=== PATIENT | female | born 1955 | race Caucasian/White ===

== ENCOUNTER 2016-09-16 05:08 | Emergency (ER) | payer BC ==
[2016-09-16 05:27] VITALS: RESP 18
[2016-09-16 05:55] LABS: Appearance,Urine Turbid (Clear); Bilirubin,Urine Negative (Negative); Glucose,Urine (UA) Negative (Negative); Ketones,Urine Negative (Negative); Leukocyte Esterase,Urine Large (Negative); Nitrite,Urine Negative (Negative); Particle Count 2686; Protein,Urine 1+ (Negative); RBC,Urine >182 /hpf (0-5); Specific Gravity,Urine 1.016 (1.001-1.035); UA Billing (MACRO vs. MICRO) MICRO; Urobilinogen,Urine <2.0 mg/dL (<2.0); WBC,Urine >182 /hpf (0-5)
[2016-09-16] MEDS ORDERED: cefTRIAXone 1,000 MG VIAL IM STA (07:24)
--- NOTE | 2016-09-16 07:31 | ED ---
General Adult HPI - General Chief complaint: Urogenital Stated complaint: Bladder infection Time Seen by Provider: 09/16/16 07:00 Source: patient, RN notes reviewed Mode of arrival: ambulatory Limitations: no limitations - History of Present Illness Initial comments: This is a 61-year-old female comes in complaining of urinary urgency and some suprapubic discomfort. Patient states started about 2 days ago. Patient states there is some dysuria as well. Patient denies any fever or chills. Patient denies any back pain. Patient denies any upper abdominal pain. Patient denies any nausea vomiting or diarrhea. - Related Data Home Medications Medication Instructions Recorded Confirmed ALPRAZolam [Xanax] 0.25 mg PO HS 11/22/13 09/16/16 Amitriptyline HCl [Elavil] 3 tab PO HS 11/22/13 09/16/16 Gabapentin [Neurontin] 100 mg PO TID 11/22/13 09/16/16 Levothyroxine Sodium [Synthroid] 1 tab PO DAILY 11/22/13 09/16/16 Calcium Carbonate/Vitamin D3 1 each PO 09/16/16 [Calcium 600-Vit D3 200 Tablet] Sennosides [Senna] 8.6 mg PO 09/16/16 Zolpidem [Ambien] 5 mg PO HS PRN 09/16/16 09/16/16 Previous Rx's Medication Instructions Recorded Levofloxacin [Levaquin] 750 mg PO DAILY #7 tab 09/16/16 Phenazopyridine [Pyridium] 200 mg PO TID #9 tablet 09/16/16 Allergies Allergy/AdvReac Type Severity Reaction Status Date / Time No Known Allergies Allergy Verified 02/06/16 12:21 Review of Systems ROS Statement: Those systems with pertinent positive or pertinent negative responses have been documented in the HPI. ROS Other: All systems not noted in ROS Statement are negative. Past Medical History Past Medical History: Fibromyalgia, Thyroid Disorder Additional Past Medical History / Comment(s): vertigo History of Any Multi-Drug Resistant Organisms: None Reported Past Surgical History: Appendectomy, Hysterectomy, Tubal Ligation Past Psychological History: No Psychological Hx Reported Smoking Status: Former smoker Past Alcohol Use History: Occasional Past Drug Use History: None Reported General Exam - General Exam Comments Initial Comments: GENERAL: Patient is well-developed and well-nourished. Patient is nontoxic and well- hydrated and is in mild distress. ENT: Neck is soft and supple. No significant lymphadenopathy is noted. Oropharynx is clear. Moist mucous membranes. Neck has full range of motion without eliciting any pain. EYES: The sclera were anicteric and conjunctiva were pink and moist. Extraocular movements were intact and pupils were equal round and reactive to light. Eyelids were unremarkable. PULMONARY: Unlabored respirations. Good breath sounds bilaterally. No audible rales rhonchi or wheezing was noted. CARDIOVASCULAR: There is a regular rate and rhythm without any murmurs gallops or rubs. ABDOMEN: Mild suprapubic tenderness patient has no CVA tenderness SKIN: Skin is clear with no lesions or rashes and otherwise unremarkable. NEUROLOGIC: Patient is alert and oriented x3. Cranial nerves II through XII are grossly intact. Motor and sensory are also intact. Normal speech, volume and content. Symmetrical smile. MUSCULOSKELETAL: Normal extremities with adequate strength and full range of motion. No lower extremity swelling or edema. No calf tenderness. LYMPHATICS: No significant lymphadenopathy is noted PSYCHIATRIC: Normal psychiatric evaluation. Limitations: no limitations Course Vital Signs 09/16/16 05:23 Temperature 97.5 F L Pulse Rate 70 Respiratory 18 Rate Blood Pressure 139/65 O2 Sat by Pulse 99 Oximetry Medical Decision Making - Medical Decision Making patient received a shot of Rocephin in the emergency department. - Lab Data Lab Results 09/16/16 Range/Units 05:27 Urine Color Yellow Urine Appearance Turbid H (Clear) Urine pH 6.0 (5.0-8.0) Ur Specific [place] 1.016 (1.001-1.035) Urine Protein 1+ H (Negative) Urine Glucose (UA) Negative (Negative) Urine Ketones Negative (Negative) Urine Blood Large H (Negative) Urine Nitrite Negative (Negative) Urine Bilirubin Negative (Negative) Urine Urobilinogen <2.0 (<2.0) mg/dL Ur Leukocyte Esterase Large H (Negative) Urine RBC >182 H (0-5) /hpf Urine WBC >182 H (0-5) /hpf Urine WBC Clumps Many H (None) /hpf Disposition Clinical Impression: Urinary tract infection Disposition: HOME SELF-CARE Condition: Good Instructions: Urinary Tract Infection in Women (ED) Prescriptions: Levofloxacin [Levaquin] 750 mg PO DAILY #7 tab Phenazopyridine [Pyridium] 200 mg PO TID #9 tablet Referrals: None,Stated [Primary Care Provider] - 1-2 days Time of Disposition: 07:30
[2016-09-16 07:50] VITALS: BP 128/70; PULSE 67; TEMP 97.8
== END 2016-09-16 07:50 | disposition home or self-care (01) ==
LOC: EC 05:08
DX: N39.0 Urinary tract infection, site not specified (principal); R10.9 Unspecified abdominal pain; M79.7 Fibromyalgia; E07.9 Disorder of thyroid, unspecified; Z87.891 Personal history of nicotine dependence; Z79.899 Other long term (current) drug therapy; Z90.710 Acquired absence of both cervix and uterus
CPT/HCPCS: 81001; 99283; 96372; J0696

== ENCOUNTER → 2016-10-23 | Outpatient (CLI) | payer BC ==
[2016-10-23 13:05] LABS: ALT 36 U/L (9-52); AST 26 U/L (14-36); Alkaline Phosphatase 101 U/L (38-126); Anion Gap 10 mmol/L; Blood Urea Nitrogen 16 mg/dL (7-17); Calcium 9.8 mg/dL (8.4-10.2); Carbon Dioxide 30 mmol/L (22-30); Chloride 104 mmol/L (98-107); Glucose 60 mg/dL (74-99); Non-African American GFR(MDRD) >60 (>60 ml/min/1.73 sqM); Sodium 144 mmol/L (137-145); Total Bilirubin 0.5 mg/dL (0.2-1.3)
[2016-10-23 13:07] LABS: CH 31.2; CHCM 34.1; HCT 38.4 % (34.0-46.0); HDW 2.68; HGB 13.7 gm/dL (11.4-16.0); MCH 32.8 pg (25.0-35.0); MCHC 35.7 g/dL (31.0-37.0); MCV 91.8 fL (80.0-100.0); Mean Platelet Volume 6.8; RBC 4.19 m/uL (3.80-5.40); RDW 13.1 % (11.5-15.5); WBC 5.3 k/uL (3.8-10.6)
[2016-10-23 13:09] LABS: Partial Thromboplastin Time 22.1 sec (22.0-30.0); Prothrombin Time 10.3 sec (9.0-12.0)
[2016-10-23 13:15] LABS: Appearance,Urine Clear (Clear); Bilirubin,Urine Negative (Negative); Glucose,Urine (UA) Negative (Negative); Ketones,Urine Negative (Negative); Leukocyte Esterase,Urine Negative (Negative); Nitrite,Urine Negative (Negative); PH, Urine 5.5 (5.0-8.0); Protein,Urine Negative (Negative); Specific Gravity,Urine 1.008 (1.001-1.035); UA Billing (MACRO vs. MICRO) CHEM; Urobilinogen,Urine <2.0 mg/dL (<2.0)
== END | disposition home or self-care (01) ==
LOC: LABWHC1 12:14
PROVIDERS: ATTEND Orthopaedic Surgery Sports Medicine
DX: Z01.810 Encounter for preprocedural cardiovascular examination (principal); Z01.812 Encounter for preprocedural laboratory examination; Z01.818 Encounter for other preprocedural examination
CPT/HCPCS: 80053; 81003; 85027; 85610; 85730; 87070

== ENCOUNTER 2016-11-02 07:17 | Inpatient (IN) | payer BC ==
[2016-10-25 11:06] VITALS: BMI 23.5
[~2016-11-02 07:17] MED LIST: ACETAMINOPHEN TAB 500 MG TAB PO ONE; DEXAMETHASONE SOD PHOSPHATE 10 MG/ML 1 ML VIAL IV ONE; HYDROmorphone 1 MG/ML 1 ML SYRINGE IVP PRN; MELOXICAM 7.5 MG TAB PO ONE; ONDANSETRON 4 MG/2 ML VIAL IVP ONE; TRANEXAMIC ACID 1,000 MG in SODIUM CHLORIDE 0.9% 100 ML IVPB ONE; ceFAZolin 2 GM in SODIUM CHLORIDE 0.9% 100 ML IVPB ONE
[2016-11-02] MEDS ORDERED: ROPIVACAINE 246.25 MG, EPINEPHrine 0.5 MG, KETOROLAC 30 MG, cloNIDine HCL/PF 80 MCG, WA... MISCELLANE ONE ×5 (10:05)
[2016-11-02 10:48] LABS: Glucose,Whole Blood 74 mg/dL (75-99)
[2016-11-02] MEDS: LACTATED RINGERS 1,000 ML IV SCH ×3 (10:54→20:04)
[2016-11-02] MEDS ORDERED: LIDOCAINE 1% 20 ML VIAL (10MG/ML) FOR IV START INTRADERMA ONE (10:54)
[2016-11-02] MEDS ORDERED: SCOPOLAMINE 1.5MG/72HR PATCH TRANSDERM ONE (11:07)
[2016-11-02] MEDS: MIDAZOLAM 2 MG/2 ML VIAL IV ONE ×2 (11:22→11:27)
[2016-11-02] MEDS ORDERED: diphenhydrAMINE 50 MG/ML 1 ML VIAL ONE (13:04)
[2016-11-02] MEDS ORDERED: MORPHINE SULFATE (PF) 0.3 MG/0.3 ML SYR ONE (13:04)
[2016-11-02] MEDS ORDERED: LIDOCAINE 1% INJ 10MG/ML (20 ML MDV) ONE (13:04)
[2016-11-02] MEDS ORDERED: SODIUM CHLORIDE 0.9% 100 ML BAG ONE (13:04)
[2016-11-02] MEDS ORDERED: MIDAZOLAM 2 MG/2 ML VIAL ONE (13:04)
[2016-11-02] MEDS ORDERED: PROPOFOL 10 MG/ML 20 ML VIAL IV ONE (13:04)
[2016-11-02] MEDS ORDERED: TRANEXAMIC ACID 1,000 MG/10 ML VIAL ONE (13:04)
[2016-11-02] MEDS ORDERED: ceFAZolin 3,000 MG in SODIUM CHLORIDE 0.9% IRRIGATIO 3,000 ML IRRIGATION ONE (13:37)
[2016-11-02] MEDS ORDERED: LACTATED RINGERS 1,000 ML IV ONE (13:43)
[2016-11-02] MEDS ORDERED: ROPIVACAINE 5 MG/ML 30 ML VIAL MISCELLANE ONE (13:46)
[2016-11-02] MEDS ORDERED: ACETAMINOPHEN TAB 325 MG TAB PO PRN (15:09)
[2016-11-02] MEDS ORDERED: HYDROcodone/APAP 7.5-325MG 1 EACH TAB PO PRN (15:09)
[2016-11-02] MEDS ORDERED: DIAZEPAM 5 MG TAB PO PRN (15:09)
[2016-11-02] MEDS ORDERED: MAGNESIUM HYDROXIDE 2,400 MG/10 ML CUP PO PRN (15:09)
[2016-11-02] MEDS ORDERED: BISACODYL 10 MG SUPP RECTAL PRN (15:09)
[2016-11-02] MEDS ORDERED: hydrOXYzine PAMOATE 25 MG CAP PO PRN (15:09)
[2016-11-02] MEDS ORDERED: NALOXONE 0.4 MG/ML 1 ML VIAL IV PRN (15:09)
[2016-11-02] MEDS ORDERED: traMADol 50 MG TAB PO PRN (15:09)
[2016-11-02] MEDS ORDERED: HYDROmorphone 1 MG/ML 1 ML SYRINGE IVP PRN (15:09)
[2016-11-02] MEDS ORDERED: NA PHOS,M-B/NA PHOS,DI-BA 133 ML ENEMA RECTAL PRN (15:09)
[2016-11-02] MEDS ORDERED: TEMAZEPAM 15 MG CAP PO PRN (15:09)
[2016-11-02] MEDS ORDERED: ONDANSETRON 4 MG/2 ML VIAL IVP PRN (15:09)
--- NOTE | 2016-11-02 15:30 | XR ---
EXAMINATION TYPE: XR knee limited RT DATE OF EXAM: 11/02/2016 CLINICAL HISTORY: Postoperative evaluation Two views of the right knee are submitted. Identified are changes of total knee arthroplasty with femoral and tibial components appearing well seated. Postsurgical soft tissue changes are noted. Alignment is anatomic.
[2016-11-02] MEDS ORDERED: diphenhydrAMINE 50 MG/ML 1 ML VIAL IVP PRN (17:53)
[2016-11-02] MEDS ORDERED: NALBUPHINE 10 MG/ML AMPUL IV PRN (17:54)
[2016-11-02] MEDS: AMITRIPTYLINE HCL 50 MG TAB PO SCH (21:35)
[2016-11-02] MEDS: SENNOSIDES-DOCUSATE SODIUM 1 EACH TAB PO SCH (21:35)
[2016-11-02] MEDS: GABAPENTIN 300 MG CAP PO SCH (21:36)
[2016-11-02] MEDS: ceFAZolin 2 GM in SODIUM CHLORIDE 0.9% 100 ML IVPB SCH (21:36)
[2016-11-02] MEDS: ASPIRIN 325 MG TAB PO SCH (21:36)
[2016-11-02] MEDS: cycloSPORINE 0.05% OPHTH 0.4 ML DROPERETTE BOTH EYES SCH (21:36)
[2016-11-02] MEDS: ALPRAZolam 0.25 MG TAB PO SCH (22:14)
[2016-11-02] MEDS: HYDROmorphone 1 MG/ML 1 ML SYRINGE IVP PRN (22:44)
[2016-11-03] MEDS: HYDROmorphone 1 MG/ML 1 ML SYRINGE IVP PRN ×4 (04:41→19:45)
[2016-11-03] MEDS: ceFAZolin 2 GM in SODIUM CHLORIDE 0.9% 100 ML IVPB SCH (04:42)
[2016-11-03] MEDS: LEVOTHYROXINE 100 MCG TAB PO SCH (05:43)
[2016-11-03] MEDS: LACTATED RINGERS 1,000 ML IV SCH ×2 (05:51→11:19)
[2016-11-03 06:05] LABS: Appearance,Urine Clear (Clear); Bacteria,Urine Rare /hpf; Bilirubin,Urine Negative (Negative); Glucose,Urine (UA) Negative (Negative); Ketones,Urine Negative (Negative); Leukocyte Esterase,Urine Large (Negative); Mucus,Urine Rare /hpf; Nitrite,Urine Negative (Negative); Particle Count 1595; Protein,Urine Negative (Negative); RBC,Urine 3 /hpf (0-5); Specific Gravity,Urine 1.013 (1.001-1.035); Squamous Epithelial Cell,Urine <1 /hpf (0-4); UA Billing (MACRO vs. MICRO) MICRO; Urobilinogen,Urine <2.0 mg/dL (<2.0); WBC,Urine 14 /hpf (0-5)
[2016-11-03 07:42] VITALS: RESP 16
[2016-11-03 07:55] LABS: Basophils % (A) 0 %; Eosinophils % (A) 0 %; HCT 35.9 % (34.0-46.0); HDW 2.77; HGB 12.9 gm/dL (11.4-16.0); Luc # (Auto) 0.14; Luc % (Auto) 1; Lymphocytes # (A) 1.3 k/uL (1.0-4.8); Lymphocytes % (A) 13 %; MCH 31.9 pg (25.0-35.0); MCHC 35.9 g/dL (31.0-37.0); MCV 88.7 fL (80.0-100.0); Mean Platelet Volume 7.1; Monocytes # (A) 0.6 k/uL (0-1.0); Monocytes % (A) 6 %; Neutrophils % (A) 80 %; RBC 4.05 m/uL (3.80-5.40); RDW 12.8 % (11.5-15.5); WBC (Perox) 9.78
[2016-11-03] MEDS: CALCIUM CARB-VIT D 500MG-200UN 1 EACH TAB PO SCH (08:38)
[2016-11-03] MEDS: ALPRAZolam 0.25 MG TAB PO SCH ×2 (08:38→21:02)
[2016-11-03] MEDS: NITROFURANTOIN MACROCRYSTAL 50 MG CAP PO SCH (08:39)
[2016-11-03] MEDS: SENNOSIDES 8.6 MG TAB PO SCH (08:40)
[2016-11-03] MEDS: OXYBUTYNIN XL 5 MG TAB.ER.24 PO SCH (08:40)
[2016-11-03] MEDS: GABAPENTIN 300 MG CAP PO SCH ×2 (08:41→21:03)
[2016-11-03] MEDS: ASPIRIN 325 MG TAB PO SCH ×2 (08:41→21:02)
--- NOTE | 2016-11-03 09:11 | P.PN ---
Progress Note - Text 0735 Anesthesia POD 1. Patient is status post right TKR under spinal anesthesia with intra-thecal preservative free morphine the 100 g. Moderate pruritus treated to good effect with Benadryl and Nubain 2.5 mg, good post-op analgesia requiring infrequent supplementation with Dilaudid 0.25 mg IV, and [ no headache or other complication].
[2016-11-03] MEDS: cycloSPORINE 0.05% OPHTH 0.4 ML DROPERETTE BOTH EYES SCH ×2 (09:40→21:03)
[2016-11-03] MEDS: HYDROcodone/APAP 7.5-325MG 1 EACH TAB PO PRN ×3 (11:21→23:12)
[2016-11-03] MEDS: MULTIVITAMINS, THERA 1 EACH TAB PO SCH ×2 (11:21→11:27)
--- NOTE | 2016-11-03 11:32 | P.PN ---
Subjective Principal diagnosis: Status post Right total knee arthroplasty Patient is postop day #1 from right total knee arthroplasty performed by Dr. Grey. She's doing well today. Her pain is mostly controlled. She has pain at surgical site as expected. She has no new complaints. She denies numbness, tingling or calf pain. Review of systems is negative for fever, chills, chest pain, shortness breath or other. Objective - Vital Signs Vital signs: Vital Signs Temp 98.4 F 11/03/16 07:00 Pulse 72 11/03/16 07:00 Resp 16 11/03/16 07:00 BP 163/70 11/03/16 07:00 Pulse Ox 99 11/03/16 07:00 Intake & Output 11/02/16 11/03/16 11/03/16 18:59 06:59 18:59 Intake Total 1821 1200 Output Total 500 1200 1025 Balance 1321 0 -1025 Weight 68.039 kg Intake: IV 1821 1200 Lactated Ringers 1,000 ml 1200 @ 100 mls/hr IV .Q10H POLO Rx#:[id number] Output: Urine 400 1200 1025 Uretheral (Gonzales) 1200 725 Estimated Blood Loss 100 Other: Voiding Method Indwelling Catheter Indwelling Catheter Indwelling Catheter # Voids 1 - Exam Inspection of the right lower extremity reveals a benign surgical wound. There is no active bleeding, drainage or dehiscence. Calf is soft and nontender. Neurovascular status intact with motor and sensation throughout the right lower extremity. 2+ dorsalis pedis pulse and less than 2 second cap refill is present. - Constitutional General appearance: Present: no acute distress - Psychiatric Psychiatric: Present: A&O x's 3, appropriate affect, intact judgment & insight - Labs CBC & Chem 7: 11/03/16 07:31 Labs: Abnormal Lab Results - Last 24 Hours (Table) 11/03/16 11/03/16 Range/Units 05:50 07:31 Neutrophils # 8.0 H (1.3-7.7) k/uL Ur Leukocyte Esterase Large H (Negative) Urine WBC 14 H (0-5) /hpf Urine Bacteria Rare H (None) /hpf Urine Mucus Rare H (None) /hpf Assessment and Plan (1) S/P total knee arthroplasty Narrative/Plan: She will continue with routine postop orthopedic protocol including pain management, wound care, physical therapy, DVT prophylaxis and postop medical management. Expect that she will discharge to home in the next 1-2 days. Status: Acute Time with Patient: Less than 30
--- NOTE | 2016-11-03 16:19 | CONS ---
DATE OF SERVICE: 11/02/2016 REASON FOR CONSULTATION: Advice regarding hypothyroidism and other medical issues, requested by Dr. Grey. HISTORY OF PRESENT ILLNESS: This 61-year-old woman with a past medical history of fibromyalgia, history of hypothyroidism, history of appendectomy, being followed by a primary physician in [place], Dr. Gema Rueda, underwent right total knee arthroplasty. There is no history of any fever, rigor chills. No history of headache, loss of consciousness, seizures. PAST MEDICAL HISTORY: 1. History of DJD. 2. History of fibromyalgia. 3. Hypothyroidism. Medications prior to admission include: 1. Restasis. 2. Ambien. 3. Detrol LA 4 mg daily. 4. Senna. 5. Nitrofurantoin 50 mg p.o. daily. 6. Synthroid 100 mcg daily. 7. [place]. 8. Neurontin 300 mg daily. 9. Elavil 50 mg. 10. Xanax 0.25 mg. ALLERGIES: NONE. FAMILY HISTORY: History of DVT in the family. SOCIAL HISTORY: Previous history of smoking. No history of alcohol intake. REVIEW OF SYSTEMS: ENT: No diminished hearing. No diminished vision. CARDIOVASCULAR SYSTEM: No angina. RESPIRATORY SYSTEM: As mentioned earlier. GI: As mentioned earlier. : No dysuria, retention. NERVOUS SYSTEM: No numbness, weakness. ALLERGY/IMMUNOLOGY: No asthma, hayfever. MUSCULOSKELETAL: As mentioned earlier. HEMATOLOGY/ONCOLOGY: No history of anemia. ENDOCRINE: Hypothyroidism. CONSTITUTIONAL: As mentioned earlier. DERMATOLOGIC: Negative. RHEUMATOLOGIC: Negative. PSYCHIATRY: As mentioned earlier. PHYSICAL EXAMINATION: Patient is alert and oriented x3. Pulse is 68, blood pressure 101/58, respirations 18, temperature 97.9, pulse ox 97% on room air. HEENT: Conjunctivae normal. NECK: No jugular venous congestion. CARDIAC: S1, S2 muffled. RESPIRATORY: Breath sounds diminished at the bases. No rhonchi. No crackles. ABDOMEN: Soft. Non-tender. No mass palpable. LEGS: Status post right knee arthroplasty. NERVOUS SYSTEM: Higher functions as mentioned earlier. Moves all 4 limbs. No focal motor or sensory deficit. LYMPHATICS: No lymph node palpable in neck, axillae or groin. SKIN: No ulcer, rash or bleeding. LABS: Accu-Chek 74. Previous labs are noted. ASSESSMENT: 1. Status post right total knee arthroplasty. 2. Hypothyroidism. 3. History of fibromyalgia. 4. History of hypoglycemia. 5. History of cholecystectomy. 6. History of anxiety not otherwise specified. 7. FULL CODE. RECOMMENDATIONS AND DISCUSSION: In this 61-year-old woman who presented with multiple complex medical issues, we will monitor the patient closely, continue the current medications, continue symptomatic treatment. I recommend resuming the home medications, DVT prophylaxis, incentive spirometry. Will follow the patient closely with you. I also recommend a UA with micro to rule out the possibility of UTI. Thank you, Dr. Grey, for letting me participate in the care of this patient. JUAN
[2016-11-03] MEDS: AMITRIPTYLINE HCL 50 MG TAB PO SCH (21:02)
[2016-11-03] MEDS: SENNOSIDES-DOCUSATE SODIUM 1 EACH TAB PO SCH (21:04)
[2016-11-04] MEDS: HYDROmorphone 1 MG/ML 1 ML SYRINGE IVP PRN (04:24)
[2016-11-04] MEDS: LACTATED RINGERS 1,000 ML IV SCH ×4 (06:52→11:36)
[2016-11-04] MEDS: GABAPENTIN 300 MG CAP PO SCH ×2 (07:50→20:22)
[2016-11-04] MEDS: LEVOTHYROXINE 100 MCG TAB PO SCH (07:50)
[2016-11-04] MEDS: cycloSPORINE 0.05% OPHTH 0.4 ML DROPERETTE BOTH EYES SCH ×2 (07:50→20:22)
[2016-11-04] MEDS: ASPIRIN 325 MG TAB PO SCH ×2 (07:50→20:22)
[2016-11-04] MEDS: NITROFURANTOIN MACROCRYSTAL 50 MG CAP PO SCH (07:51)
[2016-11-04] MEDS: OXYBUTYNIN XL 5 MG TAB.ER.24 PO SCH (07:51)
[2016-11-04] MEDS: SENNOSIDES 8.6 MG TAB PO SCH (07:51)
[2016-11-04] MEDS: CALCIUM CARB-VIT D 500MG-200UN 1 EACH TAB PO SCH (07:51)
--- NOTE | 2016-11-04 07:52 | P.DS ---
Providers Date of admission: 11/02/16 10:09 Expected date of discharge: 11/04/16 Attending physician: Jacobo Grey Consults: 11/02/16 15:16 Consult Physician Routine Consulting Provider: Vilma Escalera Consult Reason/Comments: post op medical management Do you want consulting provider notified?: Yes Primary care physician: Physician Nonstaff - Discharge Diagnosis(es) (1) S/P total knee arthroplasty Patient was admitted to the OR on 11/02/2016 to undergo right total knee arthroplasty per Dr. Grey. She had failed conservative measures as an outpatient and desired proceed with elective surgery after given informed consent. She underwent the above procedure which she tolerated well without complication. Her postoperative hospital course has remained without complication. On day of discharge she is afebrile, vital signs stable, labs within acceptable ranges, wound is benign, neurovascular status intact, abdomen soft nontender, nontender, denying new complaints, tolerating by mouth meds and diet, passing flatus, voiding without difficulty and desires discharge. Review of systems is negative for fever, chills, chest pain, shortness breath, nausea, vomiting, dizziness, headaches, slurred speech, numbness, tingling, calf pain, abdominal pain or other. Current Visit: Yes Status: Acute Priority: Medium Procedures: Right total knee arthroplasty Patient Condition at Discharge: Good Plan - Discharge Summary New Discharge Prescriptions: New Aspirin 325 mg PO BID #60 tab Docusate [Colace] 100 mg PO BID #60 capsule HYDROcodone/APAP 10-325MG [[place] 10-325] 2 tab PO Q6H PRN #90 tab PRN Reason: Pain No Action ALPRAZolam [Xanax] 0.25 mg PO BID Sennosides [Senna] 8.6 mg PO DAILY Calcium Carbonate/Vitamin D3 [Calcium 600-Vit D3 200 Tablet] 1 tab PO DAILY Amitriptyline HCl [Elavil] 50 mg PO HS Gabapentin [Neurontin] 300 mg PO BID Levothyroxine Sodium [Synthroid] 100 mcg PO DAILY Zolpidem [Ambien] 10 mg PO HS PRN PRN Reason: Insomnia Tolterodine Tartrate [Detrol LA] 4 mg PO DAILY Nitrofurantoin Macrocrystal [Macrodantin] 50 mg PO DAILY HYDROcodone/APAP 5-325MG [[place] 5-325] 1 tab PO Q6HR PRN PRN Reason: Pain cycloSPORINE [Restasis Multidose] 1 drop BOTH EYES BID Discharge Medication List ALPRAZolam [Xanax] 0.25 mg PO BID 11/22/13 [History] Calcium Carbonate/Vitamin D3 [Calcium 600-Vit D3 200 Tablet] 1 tab PO DAILY [History] Sennosides [Senna] 8.6 mg PO DAILY 09/16/16 [History] Amitriptyline HCl [Elavil] 50 mg PO HS 10/25/16 [History] Gabapentin [Neurontin] 300 mg PO BID 10/25/16 [History] HYDROcodone/APAP 5-325MG [[place] 5-325] 1 tab PO Q6HR PRN 10/25/16 [History] Levothyroxine Sodium [Synthroid] 100 mcg PO DAILY 10/25/16 [History] Nitrofurantoin Macrocrystal [Macrodantin] 50 mg PO DAILY 10/25/16 [History] Tolterodine Tartrate [Detrol LA] 4 mg PO DAILY 10/25/16 [History] Zolpidem [Ambien] 10 mg PO HS PRN 10/25/16 [History] cycloSPORINE [Restasis Multidose] 1 drop BOTH EYES BID 11/02/16 [History] Aspirin 325 mg PO BID #60 tab 11/04/16 [Rx] Docusate [Colace] 100 mg PO BID #60 capsule 11/04/16 [Rx] HYDROcodone/APAP 10-325MG [[place] 10-325] 2 tab PO Q6H PRN #90 tab 11/04/16 [Rx] Follow up Appointment(s)/Referral(s): [facility], [NON-STAFF] - As Needed Activity/Diet/Wound Care/Special Instructions: [facility] medical-walker: #[phone] Weight-bear as tolerated Take meds as directed Keep wound clean and dry Follow-up with Dr. Grey in office, [phone] Discharge Disposition: HOME WITH HOME HEALTH SERVICES
[2016-11-04] MEDS ORDERED: HYDROcodone/APAP 10-325MG 1 EACH TAB PO PRN ×3 (07:54→07:55)
[2016-11-04] MEDS: ALPRAZolam 0.25 MG TAB PO SCH ×2 (08:04→20:21)
[2016-11-04] MEDS: HYDROcodone/APAP 10-325MG 1 EACH TAB PO PRN ×4 (08:04→19:14)
--- NOTE | 2016-11-04 10:01 | OP ---
DATE OF PROCEDURE: 11/02/2016 PREOPERATIVE DIAGNOSIS: Right knee osteoarthrosis. POSTOPERATIVE DIAGNOSIS: Right knee osteoarthrosis. OPERATION: Right total knee arthroplasty. SURGEON: Jacobo Grey M.D. HYBRID DERIVATIVES TRADER: RHYS Gruber. ANESTHESIA: Spinal with sedation. ESTIMATED BLOOD LOSS: 100 mL. TOURNIQUET TIME: 47 minutes at 250 mmHg. COMPLICATIONS: None apparent. DRAINS: None. DISPOSITION: Postanesthesia care unit. INDICATIONS: Shirley is a very pleasant 61-year-old female of longstanding history of right knee pain. History and physical examination are consistent with advanced right knee osteoarthrosis. She has been through significant nonoperative management up to this point. Further treatment options were discussed and she has decided to go forward with right total knee arthroplasty. The risks of the procedure were discussed with her in detail. These risks include but are not limited to the risk of infection, nerve damage, bleeding, pain and a small risk of deep vein thrombosis, which could lead to fatal pulmonary embolism. There is also risk of loosening of the implant, which could require revision operation. Patient understands these risks. All of her questions were answered to her satisfactory and appropriate informed consent was obtained. DESCRIPTION OF PROCEDURE: The patient was identified in the preoperative holding area. Surgical site was marked by both the patient and myself. She was given 2 grams of Ancef IV for prophylactic purposes. She is then transferred to the operative suite where she was placed supine on the operating room table. Spinal anesthetic was then administered and dosed per the Anesthesia Department without apparent complications. Examination under anesthesia was then performed. The patient had full extension. She had 110 degrees of flexion of the medial collateral ligament. Lateral collateral ligament and posterior cruciate ligaments were stable. Tourniquet was then placed high on the right upper thigh, well padded in preparation for surgery. The patient's right lower extremity was then prepped and draped in the usual sterile fashion. Standard surgical pause was then undertaken to ensure that we are operating on the correct site and that appropriate preoperative antibiotics had been given. All staff in the room were in agreement and we proceeded. The outlines of the patella were then marked with surgical pen. Planned 12 cm vertical incision centered over the patella was marked with surgical pen. The leg was then exsanguinated with an Esmarch dressing. The knee was then flexed and the tourniquet was inflated to 250 mmHg. The total tourniquet time for the procedure was 47 minutes. The incision was then made with a 10 blade scalpel. Dissection was carried down sharply of the overlying fascia. Great care was taken to minimize the skin flaps. The knee was then exposed using a standard medial parapatellar approach. Small quadriceps tendon was then left for suturing. She was in a bit of varus preoperatively. Standard medial release was then made. Superficial medial collateral ligament was dissected off of the bone around to the posterior aspect of the proximal tibia. The medial meniscus was then excised as well. The lateral meniscus was also released anteriorly. The leg was externally rotated. The patella was everted. The knee was flexed. The retractor was then placed to protect the collateral ligaments. I then proceeded to remove the infrapatellar fat pad. This was excised sharply tangentially with fibers of the patellar tendon. I then proceeded to remove the peripheral osteophytes. This was done with a rongeur. I then proceeded with distal femoral resection. She did have near full extension. A planned 9 mm resection was then done. Femoral canal was entered in the midline of the femur approximately 10 mm anterior to the origin of the posterior cruciate ligament. The eber was then advanced down the center of the femur and placed intramedullary. Based on preoperative radiographs, the angle between the anatomic and mechanical axis of the femur was approximately 4 to 5 degrees. The valgus angle with the distal femoral cutting guide was then set at 4 degrees for the right knee. The distal femoral cutting guide was then advanced over the intramedullary eber. This was seated firmly against the femur. I then as mentioned planned to take 9 mm off the distal femur. The cutting block was then secured onto the femur with pins. The jig was then removed and the distal femoral cut was made through the slot of the box. Pins were then removed. The distal femoral cutting block was removed. The accuracy of the distal femoral cuts was checked with 2 flat bars. I then proceeded with femoral sizing. Posterior reference sizing guide was held firmly against the resected distal surface of the femur. The posterior condyles were resting on the posterior plan of the guide. The sizing stylus was then placed onto the anterior femur. The size was measured as size 7. I then assessed for femoral rotation. Plan was 3 degrees of external rotation. 3 degrees of external rotation was placed onto the jig. These holes were then marked. I then confirmed the rotation by 3 separate methods. This was done by using epicondylar axis as well as Whitesides lines and posterior referencing. It was deemed that the external rotation was proper. I then went forward with placing the femoral cutting block. This was placed over the previously placed pinholes. The kemal wing was then placed onto the anterior slot to ensure that we would not notch the anterior femur with the anterior femoral cut. I then proceeded with the anterior femoral cut. This was flush with the anterior cortex of the femur. Posterior cuts were then made followed by the anterior chamfer cuts and then the posterior chamfer cut. The cutting block was then removed. Throughout the resection the collateral ligaments were protected with retractors. I then placed a trial size 7 femur. It fit very nice medial lateral and fit flush with the distal end of the femur. The drill holes were then made. I then proceeded with tibial cut. I planned for a cruciate retaining knee. The guide was placed and set for a varus, valgus and then slope. The height was set for approximate 2 mm resection from the medial tibial plateau, which was the lower side. I was happy with the alignment and the amount of resection. The cutting block was then pinned to the proximal tibia. The alignment eber was then removed from the proximal tibia and was resected with reciprocating saw. Again, this was done with retractors protecting the collateral ligaments as well as the posterior cruciate ligament. I then proceeded to evaluate the flexion and extension gaps. A 10 mm block was then placed. Flexion extension gaps were equal. I then proceeded with resection of the posterior osteophytes. She had very minimal posterior osteophytes. This was done with curved osteotome. This resected the posterior osteophytes and posterior capsule. Stripping was also done off posterior aspect of the femur at this time. The osteophytes were removed. I then proceeded with resection of the patella. The thickness of patella was measured using the calliper. The thickness was 22 mm. The thickness of the anticipated patellar dome was taken into account. The resection was then performed and confirmed to be equal in four quadrants using the calliper. Approximately 14 mm of bone remained after resection. A 29 x 8 mm standard patellar trial was then placed. The holes were then drilled and a trial was then placed. I then proceeded with sizing the tibial plate. A size E tibial plate fit very nicely. I then placed a trial femur, the tibial tray and patellar button. A 10 mm trial tibial insert was also placed. The components fit very nicely. She had full flexion and extension. The extension flexion gaps were equal and stable to both varus and valgus stress. The patella tracked appropriately. Tibial tray rotation was then marked with Bovie. This was externally rotated proper. I then proceeded with tibial preparation. I first drilled the femoral holes and removed femoral component. The tibial tray was then set for proper external rotation as well as medial lateral placement onto the tibia. It was then pinned into place. I then proceeded with punching the keel. I then decided to proceed with cementing of all of our components. The knee was thoroughly irrigated with sterile saline solution vital pulse lavage. The lateral geniculate artery was identified and cauterized. All blood was removed from the bone of tibia, femur, and patella with pulse lavage. I then proceeded with cementing. Two packs of antibiotic bone cement were prepared on the back table by certified surgical tech/first assistant. I then proceeded with cementing of the tibia first. This cement was impacted in the keel as well as deeply seated in the bone. A second coat of cement was then placed. The tibia was then impacted into place. Excess cement was then removed with Ilan's and Jokers. I then proceeded with cementing of the femoral component. The femoral component was also cemented using standard technique. Excess cement as removed. A 10 mm trial insert was then placed into the knee. It was brought into full extension with constant axial load placed until the cement had hardened. The patellar component was then cemented. This was held firmly with compressive device until the cement had dried. When the cement had dried the knee was taken out of extension. All excess cement was removed from around the prosthesis. I then trialed the knee with a 10 mm insert. The flexion extension gaps were appropriate. I then trial an 11 mm insert. The flexion extension gaps felt better. The knee was stable with an 11 mm insert. It came into full extension. I decided to go forward with an 11 mm crosslink cruciate retaining tibial insert. Polyethylene was then placed onto the tibial tray and locked into place. The knee was then reduced. The knee was then further irrigated with sterile saline solution with antibiotic added. The tourniquet was then deflated. The total tourniquet time for the procedure was 47 minutes at 250 mmHg. Final components were Cassie Persona size 7 cruciate retaining femoral component, size E tibial tray, an 11 mm medial congruent cruciate retaining polyethylene insert and a 29 x 8 mm patella. I then proceeded with closure. Again, the knee was thoroughly irrigated. The quadriceps tendon and medial retinaculum were reapproximated with a #2 Ethibond suture. The extensor mechanism was then closed with a running #2 Quill suture. Subcutaneous tissues were then closed with 2-0 Vicryl interrupted suture. The skin was closed with running 3-0 Quill suture. Dermabond was applied to the incisions. Sterile compressive dressings were then applied. All sponge and needle counts were deemed correct prior to closure. The patient tolerated the procedure without apparent complications. She was transferred to recovery room in stable condition. JUAN
[2016-11-04] MEDS: MULTIVITAMINS, THERA 1 EACH TAB PO SCH (12:11)
[2016-11-04] MEDS: AMITRIPTYLINE HCL 50 MG TAB PO SCH (20:22)
[2016-11-04] MEDS: SENNOSIDES-DOCUSATE SODIUM 1 EACH TAB PO SCH (20:22)
[2016-11-05] MEDS: HYDROcodone/APAP 10-325MG 1 EACH TAB PO PRN ×2 (03:34→07:18)
[2016-11-05] MEDS: LACTATED RINGERS 1,000 ML IV SCH ×3 (06:52→10:33)
[2016-11-05] MEDS: LEVOTHYROXINE 100 MCG TAB PO SCH (07:18)
[2016-11-05] MEDS: ASPIRIN 325 MG TAB PO SCH (07:18)
[2016-11-05] MEDS: GABAPENTIN 300 MG CAP PO SCH (07:19)
[2016-11-05] MEDS: cycloSPORINE 0.05% OPHTH 0.4 ML DROPERETTE BOTH EYES SCH (07:19)
[2016-11-05] MEDS: CALCIUM CARB-VIT D 500MG-200UN 1 EACH TAB PO SCH (07:19)
[2016-11-05] MEDS: OXYBUTYNIN XL 5 MG TAB.ER.24 PO SCH (07:19)
[2016-11-05] MEDS: SENNOSIDES 8.6 MG TAB PO SCH (07:19)
[2016-11-05] MEDS: NITROFURANTOIN MACROCRYSTAL 50 MG CAP PO SCH (07:19)
[2016-11-05 07:33] LABS: Basophils % (A) 1 %; CH 30.8; CHCM 34.1; Eosinophils # (A) 0.1 k/uL (0-0.7); Eosinophils % (A) 3 %; HDW 2.71; HGB 12.3 gm/dL (11.4-16.0); Luc % (Auto) 2; Lymphocytes # (A) 1.5 k/uL (1.0-4.8); Lymphocytes % (A) 29 %; MCHC 34.1 g/dL (31.0-37.0); MCV 90.7 fL (80.0-100.0); Mean Platelet Volume 6.8; Monocytes # (A) 0.4 k/uL (0-1.0); Monocytes % (A) 7 %; Neutrophils # (A) 3.1 k/uL (1.3-7.7); Neutrophils % (A) 59 %; RBC 3.96 m/uL (3.80-5.40); RDW 12.9 % (11.5-15.5); WBC 5.3 k/uL (3.8-10.6); WBC (Perox) 5.72
[2016-11-05 07:43] VITALS: BP 147/78; TEMP 98.2
[2016-11-05] MEDS: ALPRAZolam 0.25 MG TAB PO SCH (08:09)
--- NOTE | 2016-11-05 08:09 | PN ---
DATE OF SERVICE: 11/03/2016 This 61-year-old woman who was admitted with right total knee arthroplasty is being closely monitored. No chest pain. No palpitation. No fever. On exam, alert and oriented x3. Pulse 72, blood pressure 166/70, respiration 16 , temperature 98.4, pulse ox 99% on room air. HEENT: Conjunctivae normal. NECK: No jugular venous distention. CARDIOVASCULAR: S1, S2 muffled. Ejection systolic murmur present. RESPIRATORY: Breath sounds diminished at the bases. No rhonchi. No crackles. ABDOMEN: Soft. Non-tender. LEGS: Status post right knee arthroplasty. NERVOUS SYSTEM: No focal deficit. LABS: UA noted. ASSESSMENT: 1. Status post rt knee arthroplasty. 2. Relative hypotension. 3. Postoperative nausea, improved. 4. Coronary artery disease. 5. History of gastroesophageal reflux disease. 6. Hypertension, essential. 7. Hyperlipidemia. 8. Aortic stenosis. 9. Anemia, dilutional. 10. Increased white count, reactive. RECOMMENDATIONS AND DISCUSSION: I recommend to continue current medications, continue to monitor, symptomatic treatment. Otherwise, at this time I would recommend incentive spirometry. Urine culture. Further recommendations to follow. MTDD
[2016-11-05] MEDS: MULTIVITAMINS, THERA 1 EACH TAB PO SCH (08:56)
[2016-11-05 09:08] VITALS: PULSE 86
== END 2016-11-05 11:28 | disposition home health service (06) | DRG 470 ==
LOC: 2ORMAIN 10:09 → 5MS5E 15:13 → 3SUR 11-05 10:08
PROVIDERS: ADMIT Orthopaedic Surgery Sports Medicine; ATTEND Orthopaedic Surgery Sports Medicine
PROC: 0SRC0J9 Replacement of Right Knee Joint with Synthetic Substitute, Cemented, Open Approach (ICD-10-PCS; principal; 2016-11-02 12:05)
DX: M17.11 Unilateral primary osteoarthritis, right knee (principal); I95.9 Hypotension, unspecified; I10 Essential (primary) hypertension; E03.9 Hypothyroidism, unspecified; E78.5 Hyperlipidemia, unspecified; I25.10 Atherosclerotic heart disease of native coronary artery without angina pectoris; I35.0 Nonrheumatic aortic (valve) stenosis; K21.9 Gastro-esophageal reflux disease without esophagitis; M79.7 Fibromyalgia; Z79.899 Other long term (current) drug therapy; Z87.891 Personal history of nicotine dependence; F41.9 Anxiety disorder, unspecified; R11.0 Nausea
CPT/HCPCS: 81001; 85025; 87086; 88300

== ENCOUNTER → 2017-08-29 | Outpatient (CLI) | payer BC ==
[2017-08-29 12:59] LABS: HCT 40.9 % (34.0-46.0); HGB 13.9 gm/dL (11.4-16.0); MCH 29.9 pg (25.0-35.0); MCHC 34.1 g/dL (31.0-37.0); MCV 87.6 fL (80.0-100.0); Mean Platelet Volume 7.4; Platelet Count 264 k/uL (150-450); RBC 4.67 m/uL (3.80-5.40); RDW 12.1 % (11.5-15.5); WBC 4.5 k/uL (3.8-10.6)
[2017-08-29 13:46] LABS: Erythrocyte Sedimentation Rate 10 mm/hr (0-20)
== END ==
LOC: LABWHC1 12:00
PROVIDERS: ATTEND Orthopaedic Surgery Sports Medicine
DX: M25.562 Pain in left knee (principal); M25.462 Effusion, left knee; M23.362 Other meniscus derangements, other lateral meniscus, left knee; M17.12 Unilateral primary osteoarthritis, left knee; Z48.89 Encounter for other specified surgical aftercare
CPT/HCPCS: 36415; 83520; 85027; 85652; 86140

== ENCOUNTER → 2017-09-18 | Outpatient (CLI) | payer BC ==
[2017-09-18 10:51] LABS: HCT 42.6 % (34.0-46.0); HGB 14.8 gm/dL (11.4-16.0); MCH 31.4 pg (25.0-35.0); MCHC 34.7 g/dL (31.0-37.0); MCV 90.6 fL (80.0-100.0); Mean Platelet Volume 6.6; Platelet Count 252 k/uL (150-450); RBC 4.71 m/uL (3.80-5.40); RDW 12.7 % (11.5-15.5); WBC 4.1 k/uL (3.8-10.6)
[2017-09-18 10:53] LABS: Appearance,Urine Clear (Clear); Bacteria,Urine Rare /hpf; Bilirubin,Urine Negative (Negative); Blood,Urine Negative (Negative); Color,Urine Yellow; Glucose,Urine (UA) Negative (Negative); Hyaline Casts,Urine 1 /lpf (0-2); Ketones,Urine Negative (Negative); Leukocyte Esterase,Urine Small (Negative); Mucus,Urine Rare /hpf; Nitrite,Urine Negative (Negative); Protein,Urine Negative (Negative); RBC,Urine <1 /hpf (0-5); Specific Gravity,Urine 1.014 (1.001-1.035); Squamous Epithelial Cell,Urine 1 /hpf (0-4); Urobilinogen,Urine <2.0 mg/dL (<2.0); WBC,Urine 3 /hpf (0-5)
[2017-09-18 11:05] LABS: Albumin 4.4 g/dL (3.5-5.0); Total Bilirubin 0.7 mg/dL (0.2-1.3); Total Protein 6.9 g/dL (6.3-8.2)
[2017-09-18 11:07] LABS: Partial Thromboplastin Time 21.9 sec (22.0-30.0); Prothrombin Time 9.9 sec (9.0-12.0)
== END | disposition home or self-care (01) ==
LOC: LABPAT 10:01
PROVIDERS: ATTEND Orthopaedic Surgery Sports Medicine
DX: Z01.812 Encounter for preprocedural laboratory examination (principal); Z01.818 Encounter for other preprocedural examination
CPT/HCPCS: 80053; 81001; 85027; 85610; 85730; 87070; 93005

== ENCOUNTER 2017-09-27 09:56 | Inpatient (IN) | payer BC ==
[2017-09-19 11:25] VITALS: BMI 23.5
[~2017-09-27 09:56] MED LIST changes: -DEXAMETHASONE SOD PHOSPHATE 10 MG/ML 1 ML VIAL IV ONE; -HYDROmorphone 1 MG/ML 1 ML SYRINGE IVP PRN; -MELOXICAM 7.5 MG TAB PO ONE; +ONDANSETRON 4 MG/2 ML VIAL IVP PRN; -TRANEXAMIC ACID 1,000 MG in SODIUM CHLORIDE 0.9% 100 ML IVPB ONE; +TRANEXAMIC ACID 1,000 MG in SODIUM CHLORIDE 0.9% 50 ML IVPB ONE; -ceFAZolin 2 GM in SODIUM CHLORIDE 0.9% 100 ML IVPB ONE; +ceFAZolin IN SWFI 2 GM/20 ML SYRINGE IVP ONE; +fentaNYL (PF) 50 MCG/ML 2 ML AMP IV PRN
[2017-09-27] MEDS ORDERED: LIDOCAINE 1% 20 ML VIAL (10MG/ML) FOR IV START INTRADERMA ONE (10:30)
[2017-09-27] MEDS: LACTATED RINGERS 1,000 ML IV SCH ×3 (10:30→14:37)
[2017-09-27] MEDS ORDERED: MIDAZOLAM 2 MG/2 ML VIAL ONE ×2 (11:06→11:44)
[2017-09-27] MEDS ORDERED: ROPIVACAINE 246.25 MG, EPINEPHrine 0.5 MG, KETOROLAC 30 MG, cloNIDine HCL/PF 80 MCG, WA... MISCELLANE ONE ×5 (11:29)
[2017-09-27] MEDS ORDERED: ePHEDrine SULFATE/0.9% NACL/PF 50 MG/5 ML SYRINGE IV ONE (11:44)
[2017-09-27] MEDS ORDERED: SODIUM CHLORIDE 0.9% 250 ML BAG ONE (11:44)
[2017-09-27] MEDS ORDERED: PROPOFOL 10 MG/ML 20 ML VIAL IV ONE (11:44)
[2017-09-27] MEDS ORDERED: TRANEXAMIC ACID 1,000 MG/10 ML VIAL ONE (11:44)
[2017-09-27] MEDS ORDERED: fentaNYL (PF) 50 MCG/ML 2 ML AMP ONE (11:44)
[2017-09-27] MEDS ORDERED: ceFAZolin 3,000 MG in SODIUM CHLORIDE 0.9% IRRIGATIO 3,000 ML IRRIGATION ONE (12:16)
[2017-09-27] MEDS ORDERED: LACTATED RINGERS 1,000 ML IV ONE (13:10)
[2017-09-27] MEDS ORDERED: NA PHOS,M-B/NA PHOS,DI-BA 133 ML ENEMA RECTAL PRN (13:39)
[2017-09-27] MEDS ORDERED: MAGNESIUM HYDROXIDE 2,400 MG/10 ML CUP PO PRN (13:39)
[2017-09-27] MEDS ORDERED: DIAZEPAM 5 MG TAB PO PRN (13:39)
[2017-09-27] MEDS ORDERED: BISACODYL 10 MG SUPP RECTAL PRN (13:39)
[2017-09-27] MEDS ORDERED: HYDROcodone/APAP 7.5-325MG 1 EACH TAB PO PRN (13:39)
[2017-09-27] MEDS ORDERED: TEMAZEPAM 15 MG CAP PO PRN (13:39)
[2017-09-27] MEDS ORDERED: ONDANSETRON 4 MG/2 ML VIAL IVP PRN (13:39)
[2017-09-27] MEDS ORDERED: HYDROmorphone 0.5 MG/0.5 ML SYRINGE IVP PRN ×2 (13:39)
[2017-09-27] MEDS ORDERED: ACETAMINOPHEN TAB 325 MG TAB PO PRN (13:39)
[2017-09-27] MEDS ORDERED: NALOXONE 0.4 MG/ML 1 ML VIAL IV PRN (13:39)
[2017-09-27] MEDS: HYDROmorphone 0.5 MG/0.5 ML SYRINGE IVP PRN ×4 (13:59→20:07)
--- NOTE | 2017-09-27 14:26 | XR ---
EXAMINATION TYPE: XR knee limited LT DATE OF EXAM: 09/27/2017 CLINICAL HISTORY: Left knee pain and arthritis status post total knee replacement. TECHNIQUE: Portable AP and crosstable lateral views of the left knee are obtained immediately postop eratively. COMPARISON: None FINDINGS: Metallic hardware from total left knee arthroplasty is seen and appears satisfactory in al ignment and position. There is evidence of recent surgery with diffuse subcutaneous gas , vertical s kin ansley, and percutaneous suprapatellar surgical drain noted. IMPRESSION: METALLIC HARDWARE FROM TOTAL LEFT KNEE ARTHROPLASTY IS SATISFACTORY IN ALIGNMENT.
[2017-09-27] MEDS ORDERED: ZOLPIDEM 10 MG TAB PO PRN (14:46)
[2017-09-27] MEDS ORDERED: traMADol 50 MG TAB PO PRN (14:46)
--- NOTE | 2017-09-27 15:43 | P.CONS ---
History of Present Illness - Reason for Consult Recommendations regarding thyroid medications - History of Present Illness Patient is pleasant 62-year-old female admitted for elective left meatoplasty successfully underwent surgery patient denied any pain in that area patient is still coming out of anesthesia did not pass gas did not move her bowel. Patient has history of hypothyroidism for which patient uses levothyroxine 100 g at home. Patient is on gabapentin for fibromyalgia. Review of Systems REVIEW OF SYSTEMS: CONSTITUTIONAL: No fever, no malaise, no fatigue. HEENT: No recent visual problems or hearing problems. Denied any sore throat. CARDIOVASCULAR: No chest pain, orthopnea, PND, no palpitations, no syncope. PULMONARY: No shortness of breath, no cough, no hemoptysis. GASTROINTESTINAL: No diarrhea, no nausea, no vomiting, no abdominal pain. Normoactive bowel sounds. NEUROLOGICAL: No headaches, no weakness, no numbness. HEMATOLOGICAL: Denies any bleeding or petechiae. GENITOURINARY: Denies any burning micturition, frequency, or urgency. MUSCULOSKELETAL/RHEUMATOLOGICAL: Denies any joint pain, swelling, or any muscle pain. ENDOCRINE: Denies any polyuria or polydipsia. The rest of the 14-point review of systems is negative. Past Medical History Past Medical History: Cancer, Fibromyalgia, Osteoarthritis (OA), Thyroid Disorder Additional Past Medical History / Comment(s): vertigo, hx. skin cancer History of Any Multi-Drug Resistant Organisms: None Reported Past Surgical History: Appendectomy, Bladder Surgery, Hysterectomy, Joint Replacement, Tubal Ligation Additional Past Surgical History / Comment(s): tubal reversal, scope left knee and right knee, had mesh for bladder then removed, right knee replaced 2016, total left knee Past Anesthesia/Blood Transfusion Reactions: No Reported Reaction Past Psychological History: No Psychological Hx Reported Smoking Status: Former smoker Past Alcohol Use History: Occasional Additional Past Alcohol Use History / Comment(s): quit smoking 30 yrs. ago, smoked <ppd for 15 yrs. Past Drug Use History: None Reported - Past Family History Father Family Medical History: Deep Vein Thrombosis (DVT) Additional Family Medical History / Comment(s): leg Medications and Allergies Home Medications Medication Instructions Recorded Confirmed Type ALPRAZolam [Xanax] 0.25 mg PO BID PRN 11/22/13 09/27/17 History Calcium Carbonate/Vitamin D3 1 tab PO DAILY 09/16/16 09/27/17 History [Calcium 600-Vit D3 200 Tablet] Sennosides [Senna] 8.6 mg PO DAILY 09/16/16 09/27/17 History Gabapentin [Neurontin] 300 mg PO TID 10/25/16 09/27/17 History Levothyroxine Sodium [Synthroid] 100 mcg PO DAILY 10/25/16 09/27/17 History Tolterodine Tartrate [Detrol LA] 4 mg PO DAILY 10/25/16 09/27/17 History Zolpidem [Ambien] 10 mg PO HS PRN 10/25/16 09/27/17 History traMADol HCL [Ultram] 50 mg PO Q6HR PRN 09/19/17 09/27/17 History Allergies Allergy/AdvReac Type Severity Reaction Status Date / Time morphine AdvReac Itching Verified 09/27/17 14:53 Physical Exam Vitals: Vital Signs Temp Pulse Pulse Resp BP BP Pulse Ox 09/27/17 14:25 66 16 121/59 94 L 09/27/17 14:10 66 16 132/61 98 09/27/17 13:55 73 16 132/61 100 09/27/17 13:39 97.3 F L 79 16 138/61 98 09/27/17 10:18 97.6 F 54 L 16 159/84 99 Intake and Output 09/27/17 09/27/17 09/27/17 06:59 14:59 22:59 Intake Total 1401 Output Total 100 Balance 1301 Intake: IV 1401 Output: Estimated Blood Loss 100 Other: Weight 68.039 kg PHYSICAL EXAMINATION: GENERAL: The patient is alert and oriented x3, not in any acute distress. Well developed, well nourished. HEENT: Pupils are round and equally reacting to light. EOMI. No scleral icterus. No conjunctival pallor. Normocephalic, atraumatic. No pharyngeal erythema. No thyromegaly. CARDIOVASCULAR: S1 and S2 present. No murmurs, rubs, or gallops. PULMONARY: Chest is clear to auscultation, no wheezing or crackles. ABDOMEN: Soft, nontender, nondistended, normoactive bowel sounds. No palpable organomegaly. MUSCULOSKELETAL: Deferred to orthopedic surgery EXTREMITIES: No cyanosis, clubbing, or pedal edema. NEUROLOGICAL: Gross neurological examination did not reveal any focal deficits. SKIN: No rashes. Assessment and Plan Plan: -Left knee arthroplasty postoperative day 0: Pain management and DVT prophylaxis per primary service -Hyper that is and continue through thyroxine -Fibro myalgia patient is on gabapentin which will be continued
[2017-09-27] MEDS: GABAPENTIN 300 MG CAP PO SCH ×2 (16:38→21:51)
[2017-09-27] MEDS: ALPRAZolam 0.25 MG TAB PO PRN (18:09)
[2017-09-27] MEDS: HYDROcodone/APAP 7.5-325MG 1 EACH TAB PO PRN (18:42)
--- NOTE | 2017-09-27 18:50 | OP ---
OPERATIVE REPORT DATE OF SERVICE: 09/27/2017. PREOPERATIVE DIAGNOSIS: Left knee osteoarthrosis. POSTOPERATIVE DIAGNOSIS: Left knee osteoarthritis. OPERATION: Left total knee arthroplasty. SURGEON: Jacobo Grey MD AUTOMATION SPECIALIST: Camilo JOINER. ANESTHESIA: Spinal with sedation. ESTIMATED BLOOD LOSS: 100 mL. TOURNIQUET TIME: 43 minutes at 250 mmHg. COMPLICATIONS: None apparent. DRAINS: None. DISPOSITION: Postanesthesia Care Unit. INDICATIONS: Shirley is a very pleasant 62-year-old female with longstanding history of left knee pain. History and physical examination are consist with advanced left knee osteoarthrosis. She has been through significant nonoperative management up to this point. Further treatment options were discussed and she has decided to go for the left total knee arthroplasty. The risks of the procedure were discussed with her in detail. These risks include, but are not limited to risk of infection, nerve damage, bleeding, pain, and a small risk of deep vein thrombosis which could lead to fatal pulmonary embolism. There is also lack of loosening of the implant which could require revision operation. The patient understands these risks. All of her questions with regards to the procedure were answered. An appropriate informed consent was obtained. PROCEDURE: The patient was identified in preop holding area. Surgical sites marked by both the patient and myself. She was given 2 g of Ancef IV for prophylactic purposes. She was then transferred to the operative suite. She was placed supine on the operative table. Spinal anesthetic was then administered and dosed per the Anesthesia Department without apparent complication. Examination under anesthesia was then performed. The patient had full extension. She had 110 degrees of flexion and the medial collateral ligament, lateral collateral ligament posterior cruciate ligaments were stable. Tourniquet was then placed high on the left upper thigh well-padded in preparation for surgery. The patient's left lower extremity was then prepped and draped in usual sterile fashion. Standard surgical pause undertaken to ensure that we were operating the correct site and that appropriate preoperative antibiotics had been given. All staff in room were in agreement and we proceeded. The outlines of the patella were then marked with a surgical pen. A planned 12 cm vertical incision centered over the patella was marked surgical pen. The leg was then exsanguinated with an Esmarch dressing. The knee was then flexed and the tourniquet was inflated to 250 mmHg. The total tourniquet time for the procedure was 43 minutes. The incision was then made with a 10 blade scalpel. Dissection was carried down sharply to the overlying fascia. Great care was taken to minimize the skin flaps. The knee was then exposed using standard medial parapatellar approach. A small cuff of quadriceps tendon was then left for suturing. She was in a bit of varus preoperatively. A standard medial release was then made. Superficial medial collateral ligament was dissected off the bone around the posterior aspect of the proximal tibia. The medial meniscus was then excised as well. The lateral meniscus was also released anteriorly. The leg was then externally rotated. The patella was everted. The knee was flexed. The retractor was then placed to protect the collateral ligaments. I then proceeded to remove the infrapatellar fat pad. This was excised sharply tangentially with fibers of the patellar tendon. I then proceeded to remove peripheral osteophytes. This was done with a rongeur. I then proceeded with distal femoral resection. She did have near full extension. A planned 9 mm resection was then done. The femoral canal was then entered in the midline of the femur approximately 10 mm anterior to the origin of the posterior cruciate ligament. The eber was then advanced down the center of the femur and placed intramedullary. Based on preoperative radiographs, the angle between the anatomic and mechanical axis of the femur was approximately 4 to 5 degrees. The valgus angle of the distal femoral cutting guide was then set at 4 degrees for the left knee. The distal femoral cutting guide was then advanced over the intramedullary eber. This was seated firmly against the femur. We, as mentioned, planned to take 9 mm off the distal femur. The cutting block was then secured onto the femur with pins. The jig was then removed and the distal femoral cut was made through the slot of the block. The pins were removed. The distal femoral cutting block was removed. The accuracy of the distal femoral cuts was checked with 2 flat bars. I then proceed to femoral sizing. Posterior referencing sizing guide was held firmly against the resected distal surface of the femur. Posterior condyles were resting on the posterior plane of the guide. The sizing stylus was then placed onto the anterior femur. The size measured a size 7. I then assessed for femoral rotation. The plan was for 3 degrees of external rotation. Three degrees of external rotation was placed onto the jig. These holes were then marked. I then confirmed the rotation by 3 separate methods. This was done using epicondylar axis as well as Whitesides line and posterior referencing. It was deemed that the external rotation was proper. I then went forward with placing the femoral cutting block. This was placed over the previously placed pin holes. The Ezio wing was then placed on the anterior slots to ensure that we would not notch the anterior femur with the anterior femoral cut. I then proceed with the anterior femoral cut. This was flush with the anterior cortex of the femur. Posterior cuts were then made followed by the anterior chamfer cuts, and then the posterior chamfer cut. The cutting block was then removed. Throughout the resection, the collateral ligaments were protected with retractors. I then placed a trial size 7 femur. It was slightly wide medial-lateral and fit flush with the distal end of the femur. The drill holes were then made. I made a decision to go with a size 7 narrow distal femur. I then proceed with tibial cut. I planned for cruciate retaining knee. The guide was placed and set for varus valgus and for slope. The height was set for a approximate 2 mm resection from the medial tibial plateau which was the lower side. I was happy with the alignment and the amount of resection. The cutting block was then pinned to the proximal tibia. The alignment eber was removed from the proximal tibia and was resected with a reciprocating saw. Again this was done with retractors, protecting the collateral ligaments as well as the posterior cruciate ligament. I then proceeded to fully evaluate flexion-extension gaps. A 10 mm block was then placed. The flexion and extension gaps were equal. I then proceeded with resection of posterior osteophytes. She had very minimal posterior osteophytes. This was done with a curved osteotome. This resected the posterior osteophytes and posterior capsule stripping was also done off the posterior aspect of the femur at this time. The osteophytes were then removed. I then proceeded with resection of the patella. The thickness of patella was measured using a caliper. The thickness was 22 mm. The thickness of the anticipated patellar dome was taken into account. The resection was then performed and confirmed to be equal in 4 quadrants using a caliper. Approximately 14 mm of bone remained after the resection. A 32 x 8.5 standard patellar trial was then placed. The holes were then drilled and the trial was then placed. I then proceed with sizing the tibial plate. A size E tibial plate fit very nicely. I then placed the trial femur the tibial tray and the patellar button. A 10 mm trial tibial insert was also placed. The components fit very nicely. She had full flexion and extension. The extension flexion gaps were equal and stable both varus and valgus stress. The patella tracked appropriately. Tibial tray rotation was then marked with a Bovie. This was externally rotated properly. I then proceeded with tibial preparation. I first drilled the femoral holes and removed femoral component. The tibial tray was then set for proper external rotation as well as mediolateral placement onto the tibia. It was then pinned into place. I then proceeded with punching the keel. I then decided to proceed with cementing of all of our components. The knee was thoroughly irrigated with sterile saline solution via pulse lavage. The lateral geniculate artery was identified and cauterized. All blood was removed from around the bone of the tibia, femur, and patella with pulse lavage. I then proceed with cementing. Two packs of antibiotic bone cement prepared on the back table by the surgical elastic knitter hand frame. I then proceed with cementing of the tibia first. The cement was impacted into the keel as well as deeply seated into the bone. A second coat of cement was then placed. The tibia was then impacted into place. Excess cement was then removed with Friendship's and Joker's. I then proceed with cementing the femoral component. The femoral component was also cemented using standard technique. Excess cement was removed. A 10 mm trial insert was then placed into the knee. It was brought into full extension with a constant axial load placed until the cement had hardened. The patellar component was then cemented. This was held firmly with a compressive device until the cement had dried. When the cement had dried, the knee was taken out of extension. All excess cement was removed from around the prosthesis. I then trialed the knee with a 10 mm insert. Flexion extension gaps were appropriate. I then trialed with an 11 mm insert. The flexion-extension gaps felt a little better. The knee was stable with an 11 mm insert. It came into full extension. I decided to go forward with an 11 mm cross-linked cruciate retaining tibial insert. Polyethylene was then placed on the tibial tray and locked into place. The knee was then reduced. The knee was again further irrigated with sterile saline solution with antibiotic added. The tourniquet was then deflated. The total tourniquet time for the procedure was 43 minutes at 250 mmHg. Final components were Cassie Persona size 7 cruciate-retaining femoral component, size E tibial tray, and 11 mm medial congruent cruciate-retaining polyethylene insert, and a 32 x 8.5 mm patella. I then proceeded with closure. Again, the knee was thoroughly irrigated. The quadriceps tendon and medial retinaculum were reapproximated with #2 Ethibond suture. The extensor mechanism was then closed with a running #2 Quill suture. Subcutaneous tissues were then closed with 2-0 Vicryl interrupted suture. The skin was closed with a running 3-0 Quill suture. Dermabond was applied to the incision. Sterile compressive dressing was then applied. All sponge and needle counts were deemed correct prior to closure. The patient tolerated the procedure without apparent complication. She was transferred to recovery room in stable condition. MMODL / IJN: [id number] /
[2017-09-27] MEDS: ceFAZolin IN SWFI 2 GM/20 ML SYRINGE IVP SCH (20:06)
[2017-09-27] MEDS: SENNOSIDES-DOCUSATE SODIUM 1 EACH TAB PO SCH (20:07)
[2017-09-27] MEDS: ASPIRIN 325 MG TAB PO SCH (20:07)
[2017-09-27] MEDS ORDERED: GABAPENTIN 300 MG CAP PO SCH (21:00)
[2017-09-28] MEDS: HYDROmorphone 0.5 MG/0.5 ML SYRINGE IVP PRN ×2 (00:19→08:18)
[2017-09-28] MEDS: LACTATED RINGERS 1,000 ML IV SCH ×3 (02:46→21:08)
[2017-09-28] MEDS: HYDROcodone/APAP 7.5-325MG 1 EACH TAB PO PRN (03:39)
[2017-09-28] MEDS: ceFAZolin IN SWFI 2 GM/20 ML SYRINGE IVP SCH (03:40)
[2017-09-28] MEDS: LEVOTHYROXINE 100 MCG TAB PO SCH (05:49)
[2017-09-28] MEDS: ALPRAZolam 0.25 MG TAB PO PRN ×2 (07:31→21:12)
[2017-09-28] MEDS ORDERED: HYDROcodone/APAP 10-325MG 1 EACH TAB PO PRN (08:55)
--- NOTE | 2017-09-28 08:55 | P.PN ---
Subjective Progress Note Date: 09/28/17 Principal diagnosis: S/P left TKA Patient is seen at bedside this morning. She is postop day #1 from a left total knee arthroplasty. She has pain at the surgical site as expected but denies any new complaints. She denies numbness, tingling or calf pain. Review of systems is negative for fever, chills, chest pain, shortness of breath or other Objective - Vital Signs Vital signs: Vital Signs Temp 98.6 F 09/28/17 07:10 Pulse 80 09/28/17 07:10 Resp 16 09/28/17 07:10 BP 162/79 09/28/17 07:10 Pulse Ox 97 09/28/17 07:10 Intake & Output 09/27/17 09/28/17 09/28/17 18:59 06:59 18:59 Intake Total 1401 2000 Output Total 100 Balance 1301 1999 Weight 68.039 kg Intake: IV 1401 Intake, IV Titration 1000 Amount Lactated Ringers 1,000 ml 1000 @ 100 mls/hr IV .Q10H POLO Rx#:[id number] Oral 1000 Output: Estimated Blood Loss 100 Other: Voiding Method Toilet # Voids 2 2 - Exam Inspection reveals a benign surgical wound. There is no active bleeding or drainage. Neurovascular status is intact throughout the lower extremity with motor and sensation fully intact. Calf is soft and nontender. 2+ dorsalis pedis pulse and less than 2 second cap refill is present - Constitutional General appearance: Present: no acute distress - Psychiatric Psychiatric: Present: A&O x's 3, appropriate affect, intact judgment & insight Assessment and Plan (1) S/P total knee arthroplasty Narrative/Plan: She will continue with routine postop orthopedic protocol including pain management, wound care, physical therapy, DVT prophylaxis and medical management. We will increase pain meds. Expect that she will discharge in next few days. Current Visit: Yes Status: Acute Priority: Medium Code(s): Z96.659 - PRESENCE OF UNSPECIFIED ARTIFICIAL KNEE JOINT SNOMED Code(s): 1301792627948 Time with Patient: Less than 30
[2017-09-28] MEDS: HYDROcodone/APAP 10-325MG 1 EACH TAB PO PRN ×3 (09:10→21:07)
[2017-09-28] MEDS: SENNOSIDES 8.6 MG TAB PO SCH (09:10)
[2017-09-28] MEDS: GABAPENTIN 300 MG CAP PO SCH ×3 (09:10→21:08)
[2017-09-28] MEDS: hydrOXYzine PAMOATE 25 MG CAP PO PRN ×2 (09:10→14:57)
[2017-09-28] MEDS: ASPIRIN 325 MG TAB PO SCH ×2 (09:10→21:07)
[2017-09-28] MEDS: OXYBUTYNIN XL 5 MG TAB.ER.24 PO SCH (09:12)
[2017-09-28 09:33] LABS: Basophils % (A) 1 %; Eosinophils % (A) 1 %; HCT 38.5 % (34.0-46.0); HGB 13.1 gm/dL (11.4-16.0); Lymphocytes # (A) 0.6 k/uL (1.0-4.8); Lymphocytes % (A) 15 %; MCH 30.8 pg (25.0-35.0); MCV 90.5 fL (80.0-100.0); Mean Platelet Volume 6.9; Monocytes # (A) 0.4 k/uL (0-1.0); Monocytes % (A) 8 %; Neutrophils # (A) 3.3 k/uL (1.3-7.7); Neutrophils % (A) 74 %; Platelet Count 215 k/uL (150-450); RBC 4.25 m/uL (3.80-5.40); RDW 12.6 % (11.5-15.5); WBC 4.4 k/uL (3.8-10.6)
[2017-09-28] MEDS: MULTIVITAMINS, THERA 1 EACH TAB PO SCH (12:07)
[2017-09-28] MEDS: SENNOSIDES-DOCUSATE SODIUM 1 EACH TAB PO SCH (21:07)
[2017-09-29] MEDS: HYDROcodone/APAP 10-325MG 1 EACH TAB PO PRN ×4 (03:23→23:25)
[2017-09-29] MEDS: hydrOXYzine PAMOATE 25 MG CAP PO PRN ×4 (03:24→23:25)
[2017-09-29] MEDS: LACTATED RINGERS 1,000 ML IV SCH ×2 (05:17→19:49)
[2017-09-29] MEDS: LEVOTHYROXINE 100 MCG TAB PO SCH (05:53)
[2017-09-29] MEDS: traMADol 50 MG TAB PO PRN ×3 (07:40→20:39)
[2017-09-29] MEDS: MULTIVITAMINS, THERA 1 EACH TAB PO SCH (09:47)
[2017-09-29] MEDS: OXYBUTYNIN XL 5 MG TAB.ER.24 PO SCH (09:47)
[2017-09-29] MEDS: GABAPENTIN 300 MG CAP PO SCH ×3 (09:47→21:22)
[2017-09-29] MEDS: ASPIRIN 325 MG TAB PO SCH ×2 (09:47→20:39)
[2017-09-29] MEDS: SENNOSIDES 8.6 MG TAB PO SCH (09:47)
--- NOTE | 2017-09-29 12:25 | P.PN ---
Subjective Progress Note Date: 09/29/17 Principal diagnosis: S/P left TKA Patient is seen at bedside this morning. She is postop day #2 from a left total knee arthroplasty. She has pain at the surgical site as expected but denies any new complaints. She denies numbness, tingling or calf pain. Review of systems is negative for fever, chills, chest pain, shortness of breath or other Objective - Vital Signs Vital signs: Vital Signs Temp 97.5 F L 09/29/17 07:38 Pulse 70 09/29/17 07:38 Resp 18 09/29/17 07:38 BP 149/77 09/29/17 07:38 Pulse Ox 100 09/29/17 07:38 Intake & Output 09/28/17 09/29/17 09/29/17 18:59 06:59 18:59 Intake Total 780 175 Balance 780 175 Intake: Oral 780 175 Other: Voiding Method Toilet # Voids 2 2 - Exam Inspection reveals a benign surgical wound. There is no active bleeding or drainage. Neurovascular status is intact throughout the lower extremity with motor and sensation fully intact. Calf is soft and nontender. 2+ dorsalis pedis pulse and less than 2 second cap refill is present - Constitutional General appearance: Present: no acute distress - Psychiatric Psychiatric: Present: A&O x's 3, appropriate affect, intact judgment & insight - Labs CBC & Chem 7: 09/28/17 07:59 Assessment and Plan (1) S/P total knee arthroplasty Narrative/Plan: She will continue with routine postop orthopedic protocol including pain management, wound care, physical therapy, DVT prophylaxis and medical management. Expect that she will discharge to home tomorrow. Current Visit: Yes Status: Acute Priority: Medium Code(s): Z96.659 - PRESENCE OF UNSPECIFIED ARTIFICIAL KNEE JOINT SNOMED Code(s): 0257720967354 Time with Patient: Less than 30
--- NOTE | 2017-09-29 13:17 | P.PN ---
Subjective No overnight events. No further recommendations from medicine perspective patient can be discharged whenever it is appropriate from orthopedic perspective. Constitutional: Denied any fatigue denied any fever. Cardio vascular: denied any chest pain, palpitations Gastrointestinal denied any nausea vomiting Pulmonary: Denied any shortness of breath cough Neurologic denied any new focal deficits Objective - Vital Signs Vital signs: Vital Signs Temp 97.5 F L 09/29/17 07:38 Pulse 70 09/29/17 07:38 Resp 18 09/29/17 07:38 BP 149/77 09/29/17 07:38 Pulse Ox 100 09/29/17 07:38 Intake & Output 09/28/17 09/29/17 09/29/17 18:59 06:59 18:59 Intake Total 780 175 Balance 780 175 Intake: Oral 780 175 Other: Voiding Method Toilet # Voids 2 2 - Exam PHYSICAL EXAMINATION: GENERAL: The patient is alert and oriented x3, not in any acute distress. Well developed, well nourished. HEENT: Pupils are round and equally reacting to light. EOMI. No scleral icterus. No conjunctival pallor. Normocephalic, atraumatic. No pharyngeal erythema. No thyromegaly. CARDIOVASCULAR: S1 and S2 present. No murmurs, rubs, or gallops. PULMONARY: Chest is clear to auscultation, no wheezing or crackles. ABDOMEN: Soft, nontender, nondistended, normoactive bowel sounds. No palpable organomegaly. MUSCULOSKELETAL: Deferred to orthopedic surgery EXTREMITIES: No cyanosis, clubbing, or pedal edema. NEUROLOGICAL: Gross neurological examination did not reveal any focal deficits. SKIN: No rashes. - Labs CBC & Chem 7: 09/28/17 07:59 Assessment and Plan Plan: -Left knee arthroplasty postoperative day 2: Pain management and DVT prophylaxis per primary service -Hyper that is and continue levothyroxine -Fibro myalgia patient is on gabapentin which will be continued
[2017-09-29 16:05] VITALS: RESP 16
[2017-09-29] MEDS: SENNOSIDES-DOCUSATE SODIUM 1 EACH TAB PO SCH (20:39)
[2017-09-30] MEDS: traMADol 50 MG TAB PO PRN ×2 (01:53→06:12)
[2017-09-30] MEDS: LACTATED RINGERS 1,000 ML IV SCH ×2 (03:42→13:06)
[2017-09-30] MEDS: LEVOTHYROXINE 100 MCG TAB PO SCH (06:12)
[2017-09-30] MEDS: HYDROcodone/APAP 10-325MG 1 EACH TAB PO PRN ×2 (06:54→12:18)
[2017-09-30 07:06] VITALS: BP 133/82; PULSE 81; TEMP 97.8
[2017-09-30 07:28] LABS: Basophils % (A) 1 %; Eosinophils # (A) 0.1 k/uL (0-0.7); Eosinophils % (A) 3 %; HCT 42.1 % (34.0-46.0); HGB 14.1 gm/dL (11.4-16.0); Lymphocytes # (A) 1.3 k/uL (1.0-4.8); Lymphocytes % (A) 26 %; MCHC 33.6 g/dL (31.0-37.0); MCV 92.4 fL (80.0-100.0); Mean Platelet Volume 6.8; Monocytes # (A) 0.4 k/uL (0-1.0); Monocytes % (A) 8 %; Neutrophils % (A) 60 %; Platelet Count 215 k/uL (150-450); RBC 4.55 m/uL (3.80-5.40); RDW 12.9 % (11.5-15.5)
[2017-09-30] MEDS: hydrOXYzine PAMOATE 25 MG CAP PO PRN (07:49)
[2017-09-30] MEDS: GABAPENTIN 300 MG CAP PO SCH (07:50)
[2017-09-30] MEDS: SENNOSIDES 8.6 MG TAB PO SCH (07:50)
[2017-09-30] MEDS: ASPIRIN 325 MG TAB PO SCH (07:50)
[2017-09-30] MEDS: OXYBUTYNIN XL 5 MG TAB.ER.24 PO SCH (07:50)
--- NOTE | 2017-09-30 12:27 | P.DS ---
Providers Date of admission: 09/27/17 09:56 Expected date of discharge: 09/30/17 Attending physician: Jacobo Grey Consults: 09/27/17 13:39 Consult Physician Routine Consulting Provider: Vilma Escalera Consult Reason/Comments: post op medical management Do you want consulting provider notified?: Yes Primary care physician: Physician Nonstaff - Discharge Diagnosis(es) (1) S/P total knee arthroplasty Patient was admitted to the OR on 09/27/2017 to undergo LEFT Total knee arthroplasty. She had failed conservative measures as an outpatient and desired to proceed with elective surgery after given informed consent. She underwent the above procedure which she tolerated well without complication. Postoperative hospital course has remained without complication. On day of discharge she is afebrile, vital signs stable, labs within acceptable ranges, tolerating by mouth meds and diet, voiding without difficulty, positive flatus, denies abdominal pain or calf pain, pain is controlled on oral pain medication and has no new complaints. Wound is benign, neurovascular status is intact, calf is soft and nontender, abdomen soft and nontender. Review of systems is negative for numbness, tingling, fever, chills, chest pain, shortness breath, nausea, vomiting, dizziness, headaches, slurred speech or other. Current Visit: Yes Status: Acute Priority: Medium Patient Condition at Discharge: Good Plan - Discharge Summary Discharge Rx Participant: Yes New Discharge Prescriptions: New Aspirin 325 mg PO BID #60 tab Docusate [Colace] 100 mg PO BID #60 capsule HYDROcodone/APAP 10-325MG [Deaver 10-325] 1 tab PO Q4HR PRN #90 tab PRN Reason: Pain oxyCODONE HCL [OxyIR] 5 mg PO Q6H PRN #20 tab PRN Reason: Breakthrough Pain No Action ALPRAZolam [Xanax] 0.25 mg PO BID PRN PRN Reason: Anxiety Sennosides [Senna] 8.6 mg PO DAILY Calcium Carbonate/Vitamin D3 [Calcium 600-Vit D3 200 Tablet] 1 tab PO DAILY Gabapentin [Neurontin] 300 mg PO TID Levothyroxine Sodium [Synthroid] 100 mcg PO DAILY Zolpidem [Ambien] 10 mg PO HS PRN PRN Reason: Insomnia Tolterodine Tartrate [Detrol LA] 4 mg PO DAILY traMADol HCL [Ultram] 50 mg PO Q6HR PRN PRN Reason: Pain Discharge Medication List ALPRAZolam [Xanax] 0.25 mg PO BID PRN 11/22/13 [History] Calcium Carbonate/Vitamin D3 [Calcium 600-Vit D3 200 Tablet] 1 tab PO DAILY [History] Sennosides [Senna] 8.6 mg PO DAILY 09/16/16 [History] Gabapentin [Neurontin] 300 mg PO TID 10/25/16 [History] Levothyroxine Sodium [Synthroid] 100 mcg PO DAILY 10/25/16 [History] Tolterodine Tartrate [Detrol LA] 4 mg PO DAILY 10/25/16 [History] Zolpidem [Ambien] 10 mg PO HS PRN 10/25/16 [History] traMADol HCL [Ultram] 50 mg PO Q6HR PRN 09/19/17 [History] Aspirin 325 mg PO BID #60 tab 09/30/17 [Rx] Docusate [Colace] 100 mg PO BID #60 capsule 09/30/17 [Rx] HYDROcodone/APAP 10-325MG [Deaver 10-325] 1 tab PO Q4HR PRN #90 tab 09/30/17 [Rx] oxyCODONE HCL [OxyIR] 5 mg PO Q6H PRN #20 tab 09/30/17 [Rx] Follow up Appointment(s)/Referral(s): [facility], [NON-STAFF] - Jacobo Grey MD [STAFF PHYSICIAN] - 10/08/17 2:30 pm Activity/Diet/Wound Care/Special Instructions: Keep wound clean and dry Take meds as directed Follow-up with Dr. Grey in office Weight bear as tolerated May shower in 2 days if no bleeding Discharge Disposition: HOME WITH HOME HEALTH SERVICES
[2017-09-30] MEDS: MULTIVITAMINS, THERA 1 EACH TAB PO SCH (13:06)
== END 2017-09-30 13:36 | disposition home health service (06) | DRG 470 ==
LOC: 2ORMAIN 09:56 → 3SUR 13:38
PROVIDERS: ADMIT Orthopaedic Surgery Sports Medicine; ATTEND Orthopaedic Surgery Sports Medicine
PROC: 0SRD0J9 Replacement of Left Knee Joint with Synthetic Substitute, Cemented, Open Approach (ICD-10-PCS; principal; 2017-09-27 12:00)
DX: M17.12 Unilateral primary osteoarthritis, left knee (principal); E03.9 Hypothyroidism, unspecified; M79.7 Fibromyalgia; E83.110 Hereditary hemochromatosis; F33.42 Major depressive disorder, recurrent, in full remission; F41.9 Anxiety disorder, unspecified; K57.90 Diverticulosis of intestine, part unspecified, without perforation or abscess without bleeding; I10 Essential (primary) hypertension; G43.909 Migraine, unspecified, not intractable, without status migrainosus; E16.2 Hypoglycemia, unspecified; N39.3 Stress incontinence (female) (male); F51.01 Primary insomnia; Z79.899 Other long term (current) drug therapy; Z79.890 Hormone replacement therapy; Z90.710 Acquired absence of both cervix and uterus; Z87.891 Personal history of nicotine dependence; Z85.828 Personal history of other malignant neoplasm of skin; Z88.5 Allergy status to narcotic agent; Z96.651 Presence of right artificial knee joint; Z90.49 Acquired absence of other specified parts of digestive tract; Z83.3 Family history of diabetes mellitus; Z82.49 Family history of ischemic heart disease and other diseases of the circulatory system
CPT/HCPCS: 85025; 88300

== ENCOUNTER 2018-05-06 20:18 | Emergency (ER) | payer BC ==
[2018-05-06 20:32] VITALS: TEMP 97.7
[2018-05-06 20:50] LABS: Appearance,Urine Cloudy (Clear); Bilirubin,Urine Negative (Negative); Blood,Urine Trace (Negative); Color,Urine Light Yellow; Glucose,Urine (UA) Negative (Negative); Ketones,Urine Trace (Negative); Leukocyte Esterase,Urine Large (Negative); Nitrite,Urine Negative (Negative); PH, Urine 6.5 (5.0-8.0); Protein,Urine Negative (Negative); RBC,Urine <1 /hpf (0-5); Specific Gravity,Urine 1.006 (1.001-1.035); Squamous Epithelial Cell,Urine 1 /hpf (0-4); Urobilinogen,Urine <2.0 mg/dL (<2.0); WBC,Urine >182 /hpf (0-5)
[2018-05-06] MEDS ORDERED: SULFAMETH-TMP DS STARTER PACK 2 TAB BTL PO STA (21:26)
--- NOTE | 2018-05-06 21:49 | ED ---
Female Urogenital HPI - General Chief complaint: Urogenital Stated complaint: UTI Source: patient Mode of arrival: ambulatory Limitations: no limitations - History of Present Illness Initial comments: Shirley Was a pleasant 63-year-old female with a history of a bladder mesh placed surgically a number of years ago. Patient reports that for the past 1-2 years she's been having very frequent urinary tract infections. She reports she was treated approximately 3 weeks ago with Macrobid and had 1-2 weeks of relief but again is having dysuria hematuria and foul smelling urine. Patient has a follow-up visit with her urologist Dr. Nielsen on Sunday but reports that she couldn't wait until then to get on antibiotics that she came to the ER today. Patient denies any fevers, chills, nausea vomiting or shortness of breath. - Related Data Home Medications Medication Instructions Recorded Confirmed ALPRAZolam [Xanax] 0.25 mg PO BID PRN 11/22/13 09/27/17 Calcium Carbonate/Vitamin D3 1 tab PO DAILY 09/16/16 09/27/17 [Calcium 600-Vit D3 200 Tablet] Sennosides [Senna] 8.6 mg PO DAILY 09/16/16 09/27/17 Gabapentin [Neurontin] 300 mg PO TID 10/25/16 09/27/17 Levothyroxine Sodium [Synthroid] 100 mcg PO DAILY 10/25/16 09/27/17 Tolterodine Tartrate [Detrol LA] 4 mg PO DAILY 10/25/16 09/27/17 Zolpidem [Ambien] 10 mg PO HS PRN 10/25/16 09/27/17 traMADol HCL [Ultram] 50 mg PO Q6HR PRN 09/19/17 09/27/17 Previous Rx's Medication Instructions Recorded Docusate [Colace] 100 mg PO BID #60 capsule 09/30/17 HYDROcodone/APAP 10-325MG [[place] 1 tab PO Q4HR PRN #90 tab 09/30/17 10-325] RX: Aspirin 325 mg PO BID #60 tab 09/30/17 RX: oxyCODONE HCL [OxyIR] 5 mg PO Q6H PRN #20 tab 09/30/17 Phenazopyridine HCl [Pyridium] 200 mg PO TID #9 tablet 05/06/18 Sulfamethox-Tmp 800-160Mg [Bactrim 1 tab PO Q12HR #14 tab 05/06/18 DS 800-160 mg] Allergies Allergy/AdvReac Type Severity Reaction Status Date / Time morphine AdvReac Itching Verified 05/06/18 20:32 Review of Systems ROS Statement: Those systems with pertinent positive or pertinent negative responses have been documented in the HPI. ROS Other: All systems not noted in ROS Statement are negative. Past Medical History Past Medical History: Cancer, Fibromyalgia, Osteoarthritis (OA), Thyroid Disorder Additional Past Medical History / Comment(s): vertigo, hx. skin cancer, recurrent UTIs, History of Any Multi-Drug Resistant Organisms: None Reported Past Surgical History: Appendectomy, Bladder Surgery, Hysterectomy, Joint Replacement, Tubal Ligation Additional Past Surgical History / Comment(s): tubal reversal, scope left knee and right knee, had mesh for bladder then removed, right knee replaced 2016, total left knee, Past Anesthesia/Blood Transfusion Reactions: No Reported Reaction Past Psychological History: No Psychological Hx Reported Smoking Status: Former smoker Past Alcohol Use History: Occasional Past Drug Use History: None Reported - Past Family History Father Family Medical History: Deep Vein Thrombosis (DVT) Additional Family Medical History / Comment(s): leg General Exam - General Exam Comments Initial Comments: Physical Exam GENERAL: Patient is well-developed and well-nourished. Patient is nontoxic and well- hydrated and is in no distress. HENT: Normocephalic, Atraumatic. EYES: PERRL, EOMI PULMONARY: Unlabored respirations. No audible rales rhonchi or wheezing was noted. CARDIOVASCULAR: There is a regular rate and rhythm without any murmurs gallops or rubs. ABDOMEN: Tenderness to palpation in the suprapubic region SKIN: Skin is clear with no lesions or rashes and otherwise unremarkable. : Deferred NEUROLOGIC: Patient is alert and oriented x3. Moving all extremities spontaneously MUSCULOSKELETAL: Normal extremities with adequate strength and full range of motion. No lower extremity swelling or edema. No calf tenderness. PSYCHIATRIC: Normal psychiatric evaluation. Limitations: no limitations Limitations: no limitations Course Vital Signs 05/06/18 20:27 Temperature 97.7 F Pulse Rate 73 Respiratory 18 Rate Blood Pressure 156/84 O2 Sat by Pulse 97 Oximetry Medical Decision Making - Medical Decision Making with frequent urinary tract infections reporting or urinary tract symptoms , urinalysis consistent with UTI next line urine culture obtained a sign patient will be discharged home with Pyridium and Bactrim first dose of Bactrim given in ER. Neck sinus and patient scheduled to see her urologist in 2 days for further evaluation of her frequent urinary tract infections and sent all questions pertaining the care answered return parameters were discussed patient was discharged home in stable condition. - Lab Data Lab Results 05/06/18 Range/Units 20:27 Urine Color Light Yellow Urine Appearance Cloudy H (Clear) Urine pH 6.5 (5.0-8.0) Ur Specific [place] 1.006 (1.001-1.035) Urine Protein Negative (Negative) Urine Glucose (UA) Negative (Negative) Urine Ketones Trace H (Negative) Urine Blood Trace H (Negative) Urine Nitrite Negative (Negative) Urine Bilirubin Negative (Negative) Urine Urobilinogen <2.0 (<2.0) mg/dL Ur Leukocyte Esterase Large H (Negative) Urine RBC <1 (0-5) /hpf Urine WBC >182 H (0-5) /hpf Urine WBC Clumps Few H (None) /hpf Ur Squamous Epith Cells 1 (0-4) /hpf Disposition Clinical Impression: Urinary tract infection Disposition: HOME SELF-CARE Condition: Good Instructions: Urinary Tract Infection in Women (ED) Prescriptions: Phenazopyridine HCl [Pyridium] 200 mg PO TID #9 tablet Sulfamethox-Tmp 800-160Mg [Bactrim DS 800-160 mg] 1 tab PO Q12HR #14 tab Is patient prescribed a controlled substance at d/c from ED?: No Referrals: Nonstaff,Physician [Primary Care Provider] - 1-2 days Harry Nielsen MD [REFERRING] - 1-2 days Time of Disposition: 21:50
[2018-05-06 22:07] VITALS: BP 129/75; PULSE 71; RESP 16
== END 2018-05-06 22:05 | disposition home or self-care (01) ==
LOC: EC 20:18
DX: N39.0 Urinary tract infection, site not specified (principal); M19.90 Unspecified osteoarthritis, unspecified site; E07.9 Disorder of thyroid, unspecified; Z85.828 Personal history of other malignant neoplasm of skin; Z87.891 Personal history of nicotine dependence; Z90.49 Acquired absence of other specified parts of digestive tract; Z90.710 Acquired absence of both cervix and uterus; Z96.653 Presence of artificial knee joint, bilateral; Z98.51 Tubal ligation status; Z98.890 Other specified postprocedural states; Z79.890 Hormone replacement therapy; Z79.899 Other long term (current) drug therapy; Z88.5 Allergy status to narcotic agent
CPT/HCPCS: 81001; 87086; 99283

== ENCOUNTER 2018-09-07 18:34 | Emergency (ER) | payer BC ==
--- NOTE | 2018-09-07 19:37 | ED ---
Arrhythmia/Palpitations HPI - General Chief Complaint: Arrhythmia/Palpitations Stated Complaint: racing heart/vision problems/near syncope Time Seen by Provider: 09/07/18 19:00 Source: patient, RN notes reviewed Mode of arrival: wheelchair Limitations: no limitations - History of Present Illness Initial Comments: This is a 63-year-old female with a history of hemachromatosis who states that she was shopping at a local store which started feeling lightheaded dizzy has some palpitations some shakes felt tired and some weird visual type changes she states she feels much better now she has similar episode about 3 years ago which is thought to be secondary to dehydration after blood testing. She does apparently have some history of low blood sugar also. Right now she feels back to normal he'll fevers chills nausea vomiting sweats at this time no chest pain no shortness of breath no dysuria hematuria or other symptoms. MD Complaint: rapid heart beat, palpitations - Related Data Home Medications Medication Instructions Recorded Confirmed ALPRAZolam [Xanax] 0.25 mg PO BID PRN 11/22/13 09/07/18 Sennosides [Senna] 8.6 mg PO DAILY 09/16/16 09/07/18 Gabapentin [Neurontin] 300 mg PO TID 10/25/16 09/07/18 Levothyroxine Sodium [Synthroid] 100 mcg PO DAILY 10/25/16 09/07/18 Tolterodine Tartrate [Detrol LA] 4 mg PO DAILY 10/25/16 09/07/18 Zolpidem [Ambien] 10 mg PO HS PRN 10/25/16 09/07/18 traMADol HCL [Ultram] 50 mg PO Q6HR PRN 09/19/17 09/07/18 Calcium/Magnesium/Zinc 1 tab PO DAILY@1200 09/07/18 09/07/18 [Vqdhbiv-Fvtklwkxa-Namw Tablet] DULoxetine HCL [Cymbalta] 60 mg PO DAILY 09/07/18 09/07/18 Estradiol [Yuvafem] 10 mcg VG MOTH 09/07/18 09/07/18 Nitrofurantoin Monohyd/M-Cryst 100 mg PO DAILY PRN 09/07/18 09/07/18 [Macrobid] Phenazopyridine HCl [Pyridium] 200 mg PO TID PRN 09/07/18 09/07/18 Allergies Allergy/AdvReac Type Severity Reaction Status Date / Time morphine AdvReac Itching Verified 09/07/18 18:55 Review of Systems ROS Statement: Those systems with pertinent positive or pertinent negative responses have been documented in the HPI. ROS Other: All systems not noted in ROS Statement are negative. Past Medical History Past Medical History: Cancer, Fibromyalgia, Osteoarthritis (OA), Thyroid Disorder Additional Past Medical History / Comment(s): vertigo, hx. skin cancer, recurrent UTIs, History of Any Multi-Drug Resistant Organisms: None Reported Past Surgical History: Appendectomy, Bladder Surgery, Hysterectomy, Joint Replacement, Tubal Ligation Additional Past Surgical History / Comment(s): tubal reversal, scope left knee and right knee, had mesh for bladder then removed, right knee replaced 2016, total left knee, Past Anesthesia/Blood Transfusion Reactions: No Reported Reaction Past Psychological History: No Psychological Hx Reported Smoking Status: Former smoker Past Alcohol Use History: Occasional Past Drug Use History: None Reported - Past Family History Father Family Medical History: Deep Vein Thrombosis (DVT) Additional Family Medical History / Comment(s): leg General Exam - General Exam Comments Initial Comments: This is a well-developed well-nourished awake alert oriented 3 female Limitations: no limitations General appearance: alert, in no apparent distress Head exam: Present: atraumatic, normocephalic, normal inspection Eye exam: Present: normal appearance, PERRL, EOMI. Absent: scleral icterus, conjunctival injection, periorbital swelling ENT exam: Present: mucous membranes dry Neck exam: Present: normal inspection, full ROM, other (No stridor JVD or bruits). Absent: tenderness, meningismus, lymphadenopathy Respiratory exam: Present: normal lung sounds bilaterally. Absent: respiratory distress, wheezes, rales, rhonchi, stridor Cardiovascular Exam: Present: regular rate, normal rhythm, normal heart sounds. Absent: systolic murmur, diastolic murmur, rubs, gallop, clicks GI/Abdominal exam: Present: soft, normal bowel sounds. Absent: distended, tenderness, guarding, rebound, rigid Extremities exam: Present: normal inspection, full ROM, normal capillary refill. Absent: tenderness, pedal edema, joint swelling, calf tenderness Back exam: Present: normal inspection Neurological exam: Present: alert, oriented X3, CN II-XII intact Psychiatric exam: Present: normal affect, normal mood Skin exam: Present: warm, dry, intact, normal color. 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 The rate was 75 EKG Findings - EKG Results: EKG: interpreted by JESSICA, sinus rhythm (There was sinus rhythm 73. Interval 132 QRS duration 82 QT since QTC 380/427 nonspecific see configuration) Medical Decision Making - Medical Decision Making Patient remains asymptomatic at did discuss Pf[employer] her and her . The differential includes dehydration and hypoglycemic episode. No other findings at this time. Patient be discharged with follow-up with her doctor I did a cursory increase oral fluids. - Lab Data Result diagrams: 09/07/18 19:07 09/07/18 19:07 Lab Results 09/07/18 09/07/18 09/07/18 Range/Units 19:07 19:07 19:07 WBC 6.3 (3.8-10.6) k/uL RBC 4.61 (3.80-5.40) m/uL Hgb 14.4 (11.4-16.0) gm/dL Hct 42.1 (34.0-46.0) % MCV 91.4 (80.0-100.0) fL MCH 31.2 (25.0-35.0) pg MCHC 34.1 (31.0-37.0) g/dL RDW 12.3 (11.5-15.5) % Plt Count 230 (150-450) k/uL Neutrophils % 54 % Lymphocytes % 26 % Monocytes % 6 % Eosinophils % 11 % Basophils % 1 % Neutrophils # 3.4 (1.3-7.7) k/uL Lymphocytes # 1.6 (1.0-4.8) k/uL Monocytes # 0.4 (0-1.0) k/uL Eosinophils # 0.7 (0-0.7) k/uL Basophils # 0.1 (0-0.2) k/uL PT 9.8 (9.0-12.0) sec INR 0.9 (<1.2) APTT 22.1 (22.0-30.0) sec D-Dimer 0.39 (<0.60) mg/L FEU Sodium 141 (137-145) mmol/L Potassium 3.5 (3.5-5.1) mmol/L Chloride 105 (98-107) mmol/L Carbon Dioxide 29 (22-30) mmol/L Anion Gap 7 mmol/L BUN 17 (7-17) mg/dL Creatinine 0.79 (0.52-1.04) mg/dL Est GFR (CKD-EPI)AfAm >90 (>60 ml/min/1.73 sqM) Est GFR (CKD-EPI)NonAf 80 (>60 ml/min/1.73 sqM) Glucose 78 (74-99) mg/dL Calcium 9.7 (8.4-10.2) mg/dL Magnesium 1.8 (1.6-2.3) mg/dL Total Bilirubin 0.5 (0.2-1.3) mg/dL AST 18 (14-36) U/L ALT 14 (9-52) U/L Alkaline Phosphatase 102 (38-126) U/L Troponin I (0.000-0.034) ng/mL Total Protein 6.5 (6.3-8.2) g/dL Albumin 4.1 (3.5-5.0) g/dL 09/07/18 Range/Units 19:07 WBC (3.8-10.6) k/uL RBC (3.80-5.40) m/uL Hgb (11.4-16.0) gm/dL Hct (34.0-46.0) % MCV (80.0-100.0) fL MCH (25.0-35.0) pg MCHC (31.0-37.0) g/dL RDW (11.5-15.5) % Plt Count (150-450) k/uL Neutrophils % % Lymphocytes % % Monocytes % % Eosinophils % % Basophils % % Neutrophils # (1.3-7.7) k/uL Lymphocytes # (1.0-4.8) k/uL Monocytes # (0-1.0) k/uL Eosinophils # (0-0.7) k/uL Basophils # (0-0.2) k/uL PT (9.0-12.0) sec INR (<1.2) APTT (22.0-30.0) sec D-Dimer (<0.60) mg/L FEU Sodium (137-145) mmol/L Potassium (3.5-5.1) mmol/L Chloride (98-107) mmol/L Carbon Dioxide (22-30) mmol/L Anion Gap mmol/L BUN (7-17) mg/dL Creatinine (0.52-1.04) mg/dL Est GFR (CKD-EPI)AfAm (>60 ml/min/1.73 sqM) Est GFR (CKD-EPI)NonAf (>60 ml/min/1.73 sqM) Glucose (74-99) mg/dL Calcium (8.4-10.2) mg/dL Magnesium (1.6-2.3) mg/dL Total Bilirubin (0.2-1.3) mg/dL AST (14-36) U/L ALT (9-52) U/L Alkaline Phosphatase (38-126) U/L Troponin I <0.012 (0.000-0.034) ng/mL Total Protein (6.3-8.2) g/dL Albumin (3.5-5.0) g/dL - Radiology Data Radiology results: report reviewed (I did review the imaging and report no acute findings.), image reviewed Disposition Clinical Impression: Palpitations Disposition: HOME SELF-CARE Condition: Good Instructions (If sedation given, give patient instructions): Heart Palpitations (ED) Is patient prescribed a controlled substance at d/c from ED?: No Referrals: Nonstaff,Physician [Primary Care Provider] - 1-2 days
[2018-09-07 19:43] LABS: Basophils # (A) 0.1 k/uL (0-0.2); Basophils % (A) 1 %; Eosinophils # (A) 0.7 k/uL (0-0.7); Eosinophils % (A) 11 %; HCT 42.1 % (34.0-46.0); HGB 14.4 gm/dL (11.4-16.0); Lymphocytes # (A) 1.6 k/uL (1.0-4.8); Lymphocytes % (A) 26 %; MCH 31.2 pg (25.0-35.0); MCHC 34.1 g/dL (31.0-37.0); MCV 91.4 fL (80.0-100.0); Mean Platelet Volume 6.8; Monocytes # (A) 0.4 k/uL (0-1.0); Monocytes % (A) 6 %; Neutrophils # (A) 3.4 k/uL (1.3-7.7); Neutrophils % (A) 54 %; Platelet Count 230 k/uL (150-450); RBC 4.61 m/uL (3.80-5.40); RDW 12.3 % (11.5-15.5); WBC 6.3 k/uL (3.8-10.6)
--- NOTE | 2018-09-07 19:46 | XR ---
EXAMINATION TYPE: XR chest 2V DATE OF EXAM: 09/07/2018 COMPARISON: None HISTORY: 11/22/2013 TECHNIQUE: PA and lateral views FINDINGS: Heart normal size. Aorta and pulmonary vasculature within normal limits. Mild interstitial prominence has a chronic appearance. No consolidation or pleural effusion. IMPRESSION: Chronic changes without acute cardiopulmonary process.
[2018-09-07 19:55] LABS: ALT 14 U/L (9-52); AST 18 U/L (14-36); Albumin 4.1 g/dL (3.5-5.0); Alkaline Phosphatase 102 U/L (38-126); Anion Gap 7 mmol/L; Blood Urea Nitrogen 17 mg/dL (7-17); Calcium 9.7 mg/dL (8.4-10.2); Carbon Dioxide 29 mmol/L (22-30); Chloride 105 mmol/L (98-107); Glucose 78 mg/dL (74-99); Magnesium 1.8 mg/dL (1.6-2.3); Potassium 3.5 mmol/L (3.5-5.1); Sodium 141 mmol/L (137-145); Total Bilirubin 0.5 mg/dL (0.2-1.3); Total Protein 6.5 g/dL (6.3-8.2)
[2018-09-07 19:57] LABS: D-Dimer 0.39 mg/L FEU (<0.60); INR 0.9 (<1.2); Partial Thromboplastin Time 22.1 sec (22.0-30.0); Prothrombin Time 9.8 sec (9.0-12.0)
[2018-09-07 21:38] VITALS: BP 122/67; PULSE 72; RESP 18; TEMP 98.3
== END 2018-09-07 21:36 | disposition home or self-care (01) ==
LOC: EC 18:34
DX: R00.2 Palpitations (principal); R42 Dizziness and giddiness; M19.90 Unspecified osteoarthritis, unspecified site; E07.9 Disorder of thyroid, unspecified; Z85.828 Personal history of other malignant neoplasm of skin; Z87.891 Personal history of nicotine dependence; Z79.890 Hormone replacement therapy; Z79.899 Other long term (current) drug therapy; Z88.5 Allergy status to narcotic agent; Z96.651 Presence of right artificial knee joint
CPT/HCPCS: 36415; 71046; 80053; 83735; 84484; 85025; 85379; 85610; 85730; 93005; 99285

== ENCOUNTER 2022-01-09 13:03 | Emergency (ER) | payer BC ==
[2022-01-09 13:46] VITALS: BP 127/85; PULSE 76; RESP 16; TEMP 98.2
== END 2022-01-09 19:03 | disposition left against medical advice (07) ==
LOC: EC 13:03
DX: I10 Essential (primary) hypertension (principal); Z53.21 Procedure and treatment not carried out due to patient leaving prior to being seen by health care provider
CPT/HCPCS: 87635; 99499

== ENCOUNTER 2024-01-20 14:46 | Emergency (ER) | payer MEDICARE, BC ==
[2024-01-20 14:57] VITALS: BP 128/70; PULSE 74; RESP 18; TEMP 98
--- NOTE | 2024-01-20 15:14 | ED ---
Fall HPI - General Chief Complaint: Wound/Laceration Stated Complaint: R knee lac/fall Time Seen by Provider: 01/20/24 14:58 Source: patient, RN notes reviewed Mode of arrival: ambulatory Limitations: no limitations - History of Present Illness Initial Comments: This is a 68-year-old female who presents to the emergency department for a fall. Patient was in the basement and tripped over a bed frame, and when she fell she landed on her knee. Currently has a laceration over her right lower leg as well as surrounding pain and swelling. Denies hitting her head or sustaining any loss of consciousness. Unsure when her last tetanus vaccine was. Family is also concerned that over the last 4 weeks she has been having an increase in dizzy spells. Patient reports a history of vertigo, however states that this usually resolves with Tyler maneuvers. However, she had the Tyler maneuver done, and the vertigo did not resolve. She did try taking meclizine as well without any relief. Describes this as a room spinning sensation that is worse with movement. She did see a tire changer aircraft a couple of weeks ago and had a complete cardiac workup and was told that her heart looked good and was not the cause of her dizziness. Family is concerned that something else may be causing it, however patient is fairly certain this is related to the vertigo. MD Complaint: fall - Related Data Home Medications Medication Instructions Recorded Confirmed ALPRAZolam [Xanax] 0.25 mg PO BID PRN 11/22/13 09/07/18 Sennosides [Senna] 8.6 mg PO DAILY 09/16/16 09/07/18 Gabapentin [Neurontin] 300 mg PO TID 10/25/16 09/07/18 Levothyroxine Sodium [Synthroid] 100 mcg PO DAILY 10/25/16 09/07/18 Tolterodine Tartrate [Detrol LA] 4 mg PO DAILY 10/25/16 09/07/18 Zolpidem [Ambien] 10 mg PO HS PRN 10/25/16 09/07/18 traMADol HCL [Ultram] 50 mg PO Q6HR PRN 09/19/17 09/07/18 Calcium/Magnesium/Zinc 1 tab PO DAILY@1200 09/07/18 09/07/18 [Dsjcoia-Nvgotipps-Tznb Tablet] DULoxetine HCL [Cymbalta] 60 mg PO DAILY 09/07/18 09/07/18 Nitrofurantoin Monohyd/M-Cryst 100 mg PO DAILY PRN 09/07/18 09/07/18 [Macrobid] Phenazopyridine HCl [Pyridium] 200 mg PO TID PRN 09/07/18 09/07/18 estradioL [Yuvafem] 10 mcg VG MOTH 09/07/18 09/07/18 Allergies Allergy/AdvReac Type Severity Reaction Status Date / Time morphine AdvReac Itching Verified 01/20/24 14:57 Review of Systems ROS Statement: Those systems with pertinent positive or pertinent negative responses have been documented in the HPI. ROS Other: All systems not noted in ROS Statement are negative. Past Medical History Past Medical History: Cancer, Fibromyalgia, Osteoarthritis (OA), Thyroid Dis order Additional Past Medical History / Comment(s): vertigo, hx. skin cancer, recurrent UTIs, History of Any Multi-Drug Resistant Organisms: None Reported Past Surgical History: Appendectomy, Bladder Surgery, Hysterectomy, Joint Replacement, Tubal Ligation Additional Past Surgical History / Comment(s): tubal reversal, scope left knee and right knee, had mesh for bladder then removed, right knee replaced 2016, total left knee, Past Anesthesia/Blood Transfusion Reactions: No Reported Reaction Past Psychological History: No Psychological Hx Reported Smoking Status: Former smoker Past Alcohol Use History: Occasional Past Drug Use History: None Reported - Past Family History Father Family Medical History: Deep Vein Thrombosis (DVT) Additional Family Medical History / Comment(s): leg General Exam Limitations: no limitations General appearance: alert, in no apparent distress Head exam: Present: atraumatic, normocephalic, normal inspection Respiratory exam: Present: normal lung sounds bilaterally. Absent: respiratory distress, wheezes, rales, rhonchi, stridor Cardiovascular Exam: Present: regular rate, normal rhythm, normal heart sounds. Absent: systolic murmur, diastolic murmur, rubs, gallop, clicks Extremities exam: Present: other (Laceration underneath the right knee. Minor active bleeding. Visible subcutaneous tissue) Neurological exam: Present: alert, oriented X3, CN II-XII intact Psychiatric exam: Present: normal affect, normal mood Course Vital Signs 01/20/24 14:53 Temperature 98.0 F Pulse Rate 74 Respiratory 18 Rate Blood Pressure 128/70 O2 Sat by Pulse 99 Oximetry Procedures - Laceration Laceration #1 Consent Obtained: verbal consent Indication: laceration Site: lower extremity Size (cm): 4 Description: linear Depth: simple, single layer Anesthetic Used: lidocaine 1% Anesthesia Technique: local infiltration Amount (mls): 5 Pre-repair: wound explored, irrigated extensively Type of Sutures: nylon Size of Sutures: 4-0 Number of Sutures: 4 Technique: simple, interrupted Medical Decision Making - Medical Decision Making This is a 68-year-old female who presents emergency department for a right leg injury and dizziness. Was pt. sent in by a medical professional or institution? @ -No Did you speak to anyone other than the patient for history? @ -No Did you review nursing and triage notes? @ -Yes, and I agree, it is accurate with regards to the patient's symptoms. Were old charts reviewed? @ -No Differential Diagnosis? @ -Differential Musculoskeletal: Muscular strain, contusion, ligament sprain, fracture, arthritis, septic arthritis, bursitis, cellulitis, muscle spasm, nerve compression, DVT, arterial occlusion, herpes zoster, electrolyte abnormality, tumor.... This is not meant to be in all inclusive list EKG interpreted by me (3pts min.)? @ -Not obtained X-rays interpreted by me (1pt min.)? @ -Chest x-ray obtained, my interpretation identifies no localized consolidations or infiltrates. Of the lumbar spine and right tib-fib obtained. My interpretation identifies no acute fractures. CT interpreted by me (1pt min.)? @ -CT scan of the brain obtained. My interpretation identifies no evidence of any acute intracranial hemorrhage. U/S interpreted by me (1pt. min.)? @ -Not obtained What testing was considered but not performed? (CT, X-rays, U/S, labs)? Why? @ -None What meds were considered but not given? Why? @ -None Did you discuss the management of the patient with other professionals? @ -No Did you reconcile home meds? @ -No Was smoking cessation discussed for >3mins.? @ -No Was critical care preformed (if so, how long)? @ -No Were there social determinants of health that impacted care today? How? (Homelessness, low income, unemployed, alcoholism, drug addiction, transporta tion, low edu. Level, literacy, decrease access to med. care, residential, rehab)? @ -No Was there de-escalation of care discussed even if they declined? (Discuss DNR or withdrawal of care, Hospice)? @ -No What co-morbidities impacted this encounter? (DM, HTN, Smoking, COPD, CAD, Cancer, CVA, Hep., AIDS, mental health diagnosis, sleep apnea, morbid obesity)? @ -Osteoarthritis, fibromyalgia, vertigo Was patient admitted / discharged? @ -Discharged. Lab work demonstrates a mildly elevated TSH, however free T4 wa s within normal limits. Lab work otherwise unremarkable. CT scan of the brain reveals no acute process. X-ray of the chest, right tib-fib, and lumbar spine obtained also revealing no acute findings. Pain was managed in the emergency department. Tetanus vaccine was updated. Laceration was cleansed and repaired with sutures. She is advised to return in 7 to 10 days for suture removal. Also advised follow-up with her PCP regarding the dizziness. If it is related to vertigo she may need to follow-up with ENT as well. Patient discharged home in stable condition. Case discussed with ED attending Dr. Mueller. Return precautions reviewed in depth, the patient is instructed to return to the emergency department with any new, worsening, or concerning symptoms. Patient verbalized understanding. Undiagnosed new problem with uncertain prognosis? @ -None Drug Therapy requiring intensive monitoring for toxicity (Heparin, Nitro, Insulin, Cardizem)? @ -None Were any procedures done? @ -Laceration repair with sutures Diagnosis/symptom? @ -Fall, laceration, dizziness Acute, or Chronic, or Acute on Chronic? @ -Acute Uncomplicated (without systemic symptoms) or Complicated (systemic symptoms)? @ -Uncomplicated Side effects of treatment? @ -None Exacerbation, Progression, or Severe Exacerbation] @ -Not applicable Poses a threat to life or bodily function? @ -No - Lab Data Result diagrams: 01/20/24 15:30 01/20/24 16:35 Lab Results 01/20/24 01/20/24 01/20/24 Range/Units 15:30 15:30 16:35 WBC 5.4 (3.8-10.6) k/uL RBC 4.69 (3.80-5.40) m/uL Hgb 15.3 (11.4-16.0) gm/dL Hct 44.2 (34.0-46.0) % MCV 94.3 (80.0-100.0) fL MCH 32.6 (25.0-35.0) pg MCHC 34.6 (31.0-37.0) g/dL RDW 11.6 (11.5-15.5) % Plt Count 265 (150-450) k/uL MPV 7.1 Neutrophils % 65 % Lymphocytes % 23 % Monocytes % 7 % Eosinophils % 1 % Basophils % 1 % Neutrophils # 3.6 (1.3-7.7) k/uL Lymphocytes # 1.3 (1.0-4.8) k/uL Monocytes # 0.4 (0-1.0) k/uL Eosinophils # 0.1 (0-0.7) k/uL Basophils # 0.1 (0-0.2) k/uL PT 10.4 (10.0-12.5) sec INR 0.9 (<1.2) APTT 22.6 (22.0-30.0) sec Sodium (137-145) mmol/L Potassium (3.5-5.1) mmol/L Chloride (98-107) mmol/L Carbon Dioxide (22-30) mmol/L Anion Gap mmol/L BUN (7-17) mg/dL Creatinine (0.52-1.04) mg/dL Est GFR (CKD-EPI)AfAm (>60 ml/min/1.73 sqM) Est GFR (CKD-EPI)NonAf (>60 ml/min/1.73 sqM) Glucose (74-99) mg/dL Calcium (8.4-10.2) mg/dL Total Bilirubin (0.2-1.3) mg/dL AST (14-36) U/L ALT (4-34) U/L Alkaline Phosphatase (38-126) U/L Troponin I <0.012 (0.000-0.034) ng/mL Total Protein (6.3-8.2) g/dL Albumin (3.5-5.0) g/dL TSH (0.465-4.680) mIU/L Free T4 (0.78-2.19) ng/dL 01/20/24 Range/Units 16:35 WBC (3.8-10.6) k/uL RBC (3.80-5.40) m/uL Hgb (11.4-16.0) gm/dL Hct (34.0-46.0) % MCV (80.0-100.0) fL MCH (25.0-35.0) pg MCHC (31.0-37.0) g/dL RDW (11.5-15.5) % Plt Count (150-450) k/uL MPV Neutrophils % % Lymphocytes % % Monocytes % % Eosinophils % % Basophils % % Neutrophils # (1.3-7.7) k/uL Lymphocytes # (1.0-4.8) k/uL Monocytes # (0-1.0) k/uL Eosinophils # (0-0.7) k/uL Basophils # (0-0.2) k/uL PT (10.0-12.5) sec INR (<1.2) APTT (22.0-30.0) sec Sodium 137 (137-145) mmol/L Potassium 4.7 (3.5-5.1) mmol/L Chloride 107 (98-107) mmol/L Carbon Dioxide 26 (22-30) mmol/L Anion Gap 4 mmol/L BUN 21 H (7-17) mg/dL Creatinine 0.96 (0.52-1.04) mg/dL Est GFR (CKD-EPI)AfAm 70 (>60 ml/min/1.73 sqM) Est GFR (CKD-EPI)NonAf 61 (>60 ml/min/1.73 sqM) Glucose 74 (74-99) mg/dL Calcium 9.2 (8.4-10.2) mg/dL Total Bilirubin 1.0 (0.2-1.3) mg/dL AST 30 (14-36) U/L ALT 14 (4-34) U/L Alkaline Phosphatase 77 (38-126) U/L Troponin I (0.000-0.034) ng/mL Total Protein 6.5 (6.3-8.2) g/dL Albumin 4.3 (3.5-5.0) g/dL TSH 5.090 H (0.465-4.680) mIU/L Free T4 1.07 (0.78-2.19) ng/dL - Radiology Data Radiology results: report reviewed, image reviewed Disposition Clinical Impression: Laceration, Dizziness, Fall Disposition: HOME SELF-CARE Instructions (If sedation given, give patient instructions): Care For Your Stitches (ED), Vertigo (ED), Benign Paroxysmal Positional Vertigo (ED), Dizziness (ED) Additional Instructions: Return to the emergency department with any new, worsening, or concerning symptoms and in 7-10 days for removal of the stitches. Follow up with your primary care provider in 1-2 days. Is patient prescribed a controlled substance at d/c from ED?: No Referrals: Gema Rueda DO [Primary Care Provider] - 1-2 days Time of Disposition: 18:48
[2024-01-20] MEDS: LIDOCAINE 1% INJ 10MG/ML (20 ML MDV) SQ ONE (15:39)
[2024-01-20] MEDS: DIPH,PERTUS(ACELL)TETVAC-LF 0.5 ML VIAL IM ONE (15:40)
[2024-01-20] MEDS: KETOROLAC 15 MG/ML 1 ML VIAL IVP STA (15:42)
[2024-01-20 16:06] LABS: Basophils # (A) 0.1 k/uL (0-0.2); Basophils % (A) 1 %; Eosinophils # (A) 0.1 k/uL (0-0.7); Eosinophils % (A) 1 %; HCT 44.2 % (34.0-46.0); HGB 15.3 gm/dL (11.4-16.0); Lymphocytes # (A) 1.3 k/uL (1.0-4.8); Lymphocytes % (A) 23 %; MCH 32.6 pg (25.0-35.0); MCHC 34.6 g/dL (31.0-37.0); MCV 94.3 fL (80.0-100.0); Mean Platelet Volume 7.1; Monocytes # (A) 0.4 k/uL (0-1.0); Monocytes % (A) 7 %; Neutrophils # (A) 3.6 k/uL (1.3-7.7); Neutrophils % (A) 65 %; Platelet Count 265 k/uL (150-450); RBC 4.69 m/uL (3.80-5.40); RDW 11.6 % (11.5-15.5); WBC 5.4 k/uL (3.8-10.6)
[2024-01-20 16:30] LABS: INR 0.9 (<1.2); Partial Thromboplastin Time 22.6 sec (22.0-30.0); Prothrombin Time 10.4 sec (10.0-12.5)
--- NOTE | 2024-01-20 16:51 | CT ---
EXAMINATION TYPE: CT brain wo con CT DLP: 1121.4 mGycm, Automated exposure control for dose reduction was used. DATE OF EXAM: 01/20/2024 4:45 PM COMPARISON: None. CLINICAL INDICATION:Female, 68 years old with history of Dizziness, dizzy spell and falls TECHNIQUE: Brain: Axial CT images of the brain were obtained with coronal and sagittal reformats created and rev iewed. Contrast used: None. Oral contrast used: None. FINDINGS: Brain: Extra-axial spaces: No abnormal extra-axial fluid collections. Ventricular system: Within normal limits Cerebral parenchyma: No acute intraparenchymal hemorrhage or mass effect. The bojorquez-white junction is well differentiated. Cerebellum: Unremarkable. Mass effect: No evidence of midline shift. Intracranial vasculature: unremarkable Soft tissues: Normal. Calvarium/osseous structures: No depressed skull fracture. Paranasal sinuses and mastoid air cells: Mild scattered paranasal sinus disease. Visualized orbits: Orbital contents are intact. IMPRESSION: No acute intracranial process. [facility], , 01/20/2024 4:49 PM
[2024-01-20 16:57] LABS: ALT 14 U/L (4-34); African American GFR (CKD) 70 (>60 ml/min/1.73 sqM); Anion Gap 4 mmol/L; Blood Urea Nitrogen 21 mg/dL (7-17); Calcium 9.2 mg/dL (8.4-10.2); Carbon Dioxide 26 mmol/L (22-30); Chloride 107 mmol/L (98-107); Glucose 74 mg/dL (74-99); Non-African American GFR(CKD) 61 (>60 ml/min/1.73 sqM); Sodium 137 mmol/L (137-145)
[2024-01-20 17:09] LABS: Albumin 4.3 g/dL (3.5-5.0); Total Protein 6.5 g/dL (6.3-8.2)
[2024-01-20 17:10] LABS: AST 30 U/L (14-36); Alkaline Phosphatase 77 U/L (38-126); Potassium 4.7 mmol/L (3.5-5.1)
--- NOTE | 2024-01-20 17:30 | XR ---
EXAMINATION TYPE: XR chest 2V DATE OF EXAM: 01/20/2024 5:21 PM CLINICAL INDICATION:Female, 68 years old with history of Dizziness; [facility] COMPARISON: Chest radiographs from 09/07/2018. TECHNIQUE: XR chest 2V Frontal and lateral views of the chest. FINDINGS: Lungs/Pleura: There is no evidence of pleural effusion, focal consolidation, or pneumothorax. Pulmonary vascularity: Unremarkable. Heart/mediastinum: Cardiomediastinal silhouette is unremarkable. Musculoskeletal: No acute osseous pathology. IMPRESSION: No acute cardiopulmonary disease/process. [facility], , 01/20/2024 5:27 PM
--- NOTE | 2024-01-20 17:31 | XR ---
EXAMINATION TYPE: XR tibia fibula RT DATE OF EXAM: 01/20/2024 5:22 PM CLINICAL INDICATION:Female, 68 years old with history of Fall; [facility] COMPARISON: None TECHNIQUE: The right tibia/fibula was examined in AP and lateral projections. FINDINGS: No evidence of any acute osseous pathology, joint dislocation, or soft tissue swelling is n oted. Right knee prosthesis is identified and intact. IMPRESSION: No evidence of acute osseous process. [facility], , 01/20/2024 5:28 PM
--- NOTE | 2024-01-20 17:32 | XR ---
EXAMINATION TYPE: XR lumbar spine 2 or 3V DATE OF EXAM: 01/20/2024 5:27 PM CLINICAL INDICATION:Female, 68 years old with history of Fall; [facility] COMPARISON: None TECHNIQUE: Frontal, lateral , bilateral oblique and coned in L5-S1 lateral views of the spine. FINDINGS: No evidence of any acute osseous pathology. No evidence of loss of vertebral body height i s seen. There is normal alignment of the lumbar vertebral bodies. Mild scattered disc space narrowing . Multilevel marginal osteophyte formation throughout the visualized spine. There is facet joint arth ropathy throughout the spine. Partially visualized sacral stimulator leads. IMPRESSION: 1. No acute fracture. 2. Moderate multilevel disc degeneration. [facility], , 01/20/2024 5:30 PM
[2024-01-20] MEDS: HYDROmorphone 1 MG/ML 1 ML SYRINGE IVP STA (17:34)
[2024-01-20 18:20] LABS: T4, Free (Free Thyroxine) 1.07 ng/dL (0.78-2.19)
== END 2024-01-20 19:01 | disposition home or self-care (01) ==
LOC: EC 14:46
CPT/HCPCS: 12002; 36415; 70450; 71046; 72100; 80053; 84439; 84443; 84484; 85025; 85610; 85730; 90471; 90715; 96374; 96375; 99284

== ENCOUNTER 2024-05-12 20:23 | Emergency (ER) | payer BC, MEDICARE ==
[2024-05-12 20:28] VITALS: TEMP 98
--- NOTE | 2024-05-12 21:09 | ED ---
General Adult HPI - General Chief complaint: Chest Pain Stated complaint: Chest Pain Time Seen by Provider: 05/12/24 20:57 Source: patient, RN notes reviewed, old records reviewed Mode of arrival: ambulatory Limitations: no limitations - History of Present Illness Initial comments: 69-year-old female presenting with palpitation, chest discomfort. No prior history of CAD. No cough or dyspnea. No lower extremity pain or swelling. No associated nausea vomiting no diaphoresis. Pain is more of a discomfort in the left upper chest, this is intermittent and has been present for the past 2 days. - Related Data Home Medications Medication Instructions Recorded Confirmed ALPRAZolam [Xanax] 0.25 mg PO BID PRN 11/22/13 09/07/18 Sennosides [Senna] 8.6 mg PO DAILY 09/16/16 09/07/18 Gabapentin [Neurontin] 300 mg PO TID 10/25/16 09/07/18 Levothyroxine Sodium [Synthroid] 100 mcg PO DAILY 10/25/16 09/07/18 Tolterodine Tartrate [Detrol LA] 4 mg PO DAILY 10/25/16 09/07/18 Zolpidem [Ambien] 10 mg PO HS PRN 10/25/16 09/07/18 traMADol HCL [Ultram] 50 mg PO Q6HR PRN 09/19/17 09/07/18 Calcium/Magnesium/Zinc 1 tab PO DAILY@1200 09/07/18 09/07/18 [Thabguj-Emobpxygy-Htje Tablet] DULoxetine HCL [Cymbalta] 60 mg PO DAILY 09/07/18 09/07/18 Nitrofurantoin Monohyd/M-Cryst 100 mg PO DAILY PRN 09/07/18 09/07/18 [Macrobid] Phenazopyridine HCl [Pyridium] 200 mg PO TID PRN 09/07/18 09/07/18 estradioL [Yuvafem] 10 mcg VG MOTH 09/07/18 09/07/18 Allergies Allergy/AdvReac Type Severity Reaction Status Date / Time morphine AdvReac Itching Verified 05/12/24 20:28 Review of Systems ROS Statement: Those systems with pertinent positive or pertinent negative responses have been documented in the HPI. ROS Other: All systems not noted in ROS Statement are negative. Past Medical History Past Medical History: Cancer, Fibromyalgia, Osteoarthritis (OA), Thyroid Disorder Additional Past Medical History / Comment(s): vertigo, hx. skin cancer, recurrent UTIs, History of Any Multi-Drug Resistant Organisms: None Reported Past Surgical History: Appendectomy, Bladder Surgery, Hysterectomy, Joint Replacement, Tubal Ligation Additional Past Surgical History / Comment(s): tubal reversal, scope left knee and right knee, had mesh for bladder then removed, right knee replaced 2016, total left knee, Past Anesthesia/Blood Transfusion Reactions: No Reported Reaction Past Psychological History: No Psychological Hx Reported Smoking Status: Former smoker Past Alcohol Use History: Occasional Past Drug Use History: None Reported - Past Family History Father Family Medical History: Deep Vein Thrombosis (DVT) Additional Family Medical History / Comment(s): leg General Exam Limitations: no limitations General appearance: alert, in no apparent distress Head exam: Present: atraumatic, normocephalic Eye exam: Present: normal appearance, PERRL Neck exam: Present: normal inspection. Absent: tenderness, meningismus Respiratory exam: Present: normal lung sounds bilaterally. Absent: respiratory distress Cardiovascular Exam: Present: regular rate, normal rhythm GI/Abdominal exam: Present: soft. Absent: distended, tenderness, guarding Extremities exam: Present: normal inspection, normal capillary refill. Absent: calf tenderness Neurological exam: Present: alert, oriented X3, CN II-XII intact. Absent: motor sensory deficit Psychiatric exam: Present: normal affect, normal mood Skin exam: Present: warm, dry, intact Course Vital Signs 05/12/24 20:24 Temperature 98.0 F Pulse Rate 68 Respiratory 18 Rate Blood Pressure 183/76 O2 Sat by Pulse 98 Oximetry Medical Decision Making - Medical Decision Making Was pt. sent in by a medical professional or institution (, PA, BALL ENDER, urgent care, hospital, or longterm...) When possible be specific @ -No Did you speak to anyone other than the patient for history (EMS, parent, family, police, friend...)? What history was obtained from this source @ -No Did you review nursing and triage notes (agree or disagree)? Why? @ -I reviewed and agree with nursing and triage notes Were old charts reviewed (outside hosp., previous admission, EMS record, old EKG, old radiological studies, urgent care reports/EKG's, longterm records)? Report findings @ -No old charts were reviewed Differential Chest Pain: Stable Angina, Unstable Angina, STEMI, NSTEMI Aortic Dissection, Pneumothorax, Musculoskeletal, Esophageal Spasm GERD, Cholecystitis, Pancreatitis, Zoster, this is not meant to be an all-inclusive list. EKG interpreted by me (3pts min.). @ -Sinus rhythm rate of 62, MI interval 146, QRS duration 83, QTc [address] segment elevation. X-rays interpreted by me (1pt min.). @ -[Chest x-ray negative for acute cardiopulmonary findings. CT interpreted by me (1pt min.). @ -None done U/S interpreted by me (1pt. min.). @ -None done What testing was considered but not performed or refused? (CT, X-rays, U/S, labs)? Why? @ -None What meds were considered but not given or refused? Why? @ -None Did you discuss the management of the patient with other professionals (professionals i.e. , PA, BALL ENDER, lab, RT, psych nurse, social sciences chair, low voltage electrician, teacher, aoc director combat plans officer, case technician)? Give summary @ -No Was smoking cessation discussed for >3mins.? @ -No Was critical care preformed (if so, how long)? @ -No Were there social determinants of health that impacted care today? How? (Homelessness, low income, unemployed, alcoholism, drug addiction, transportatio n, low edu. Level, literacy, decrease access to med. care, skilled nursing, rehab)? @ -No Was there de-escalation of care discussed even if they declined (Discuss DNR or withdrawal of care, Hospice)? DNR status @ -No What co-morbidities impacted this encounter? (DM, HTN, Smoking, COPD, CAD, Cancer, CVA, ARF, Chemo, Hep., AIDS, mental health diagnosis, sleep apnea, morbid obesity)? @ -None Was patient admitted / discharged? Hospital course, mention meds given and route, prescriptions, significant lab abnormalities, going to OR and other pertinent info. @ -69-year-old female with the palpitation and chest discomfort. Patient is well-appearing with a nonischemic EKG, chest x-ray is clear, normal CBC, CMP showing a mild elevation in serum creatinine which the patient is informed of. Negative troponin. Patient does admit that she has been or under a great deal of stress with a recent loss of her brother. We discussed possibility of further testing and the patient declines. She will return with any worsening or changing symptoms Undiagnosed new problem with uncertain prognosis? @ -No Drug Therapy requiring intensive monitoring for toxicity (Heparin, Nitro, Insulin, Cardizem)? @ -No Were any procedures done? @ -No Diagnosis/symptom? @Palpitation Acute, or Chronic, or Acute on Chronic? @ -Acute Uncomplicated (without systemic symptoms) or Complicated (systemic symptoms)? @ -Default Side effects of treatment? @ -No Exacerbation, Progression, or Severe Exacerbation? @ -No Poses a threat to life or bodily function? How? (Chest pain, [place], [place], pneumonia, PE, COPD, DKA, ARF, appy, cholecystitis, CVA, Diverticulitis, Homicidal, Suicidal, threat to staff... and all critical care pts) @ -Low risk at this time - Lab Data Result diagrams: 05/12/24 21:10 05/12/24 21:10 Lab Results 05/12/24 05/12/24 05/12/24 Range/Units 21:10 21:10 21:10 WBC 5.5 (3.8-10.6) k/uL RBC 4.28 (3.80-5.40) m/uL Hgb 13.5 (11.4-16.0) gm/dL Hct 40.0 (34.0-46.0) % MCV 93.5 (80.0-100.0) fL MCH 31.6 (25.0-35.0) pg MCHC 33.8 (31.0-37.0) g/dL RDW 11.9 (11.5-15.5) % Plt Count 220 (150-450) k/uL MPV 7.1 Neutrophils % 55 % Lymphocytes % 33 % Monocytes % 7 % Eosinophils % 2 % Basophils % 1 % Neutrophils # 3.0 (1.3-7.7) k/uL Lymphocytes # 1.8 (1.0-4.8) k/uL Monocytes # 0.4 (0-1.0) k/uL Eosinophils # 0.1 (0-0.7) k/uL Basophils # 0.0 (0-0.2) k/uL PT 10.6 (10.0-12.5) sec INR 0.9 (<1.2) APTT 22.3 (22.0-30.0) sec Sodium 139 (137-145) mmol/L Potassium 4.1 (3.5-5.1) mmol/L Chloride 103 (98-107) mmol/L Carbon Dioxide 32 H (22-30) mmol/L Anion Gap 4 mmol/L BUN 19 H (7-17) mg/dL Creatinine 1.41 H (0.52-1.04) mg/dL Est GFR (CKD-EPI)AfAm 44 (>60 ml/min/1.73 sqM) Est GFR (CKD-EPI)NonAf 38 (>60 ml/min/1.73 sqM) Glucose 86 (74-99) mg/dL Calcium 9.2 (8.4-10.2) mg/dL Magnesium 2.1 (1.6-2.3) mg/dL Total Bilirubin 0.5 (0.2-1.3) mg/dL AST 21 (14-36) U/L ALT 14 (4-34) U/L Alkaline Phosphatase 86 (38-126) U/L Troponin I (0.000-0.034) ng/mL Total Protein 6.4 (6.3-8.2) g/dL Albumin 4.1 (3.5-5.0) g/dL Lipase 100 (23-300) U/L 05/12/24 Range/Units 21:10 WBC (3.8-10.6) k/uL RBC (3.80-5.40) m/uL Hgb (11.4-16.0) gm/dL Hct (34.0-46.0) % MCV (80.0-100.0) fL MCH (25.0-35.0) pg MCHC (31.0-37.0) g/dL RDW (11.5-15.5) % Plt Count (150-450) k/uL MPV Neutrophils % % Lymphocytes % % Monocytes % % Eosinophils % % Basophils % % Neutrophils # (1.3-7.7) k/uL Lymphocytes # (1.0-4.8) k/uL Monocytes # (0-1.0) k/uL Eosinophils # (0-0.7) k/uL Basophils # (0-0.2) k/uL PT (10.0-12.5) sec INR (<1.2) APTT (22.0-30.0) sec Sodium (137-145) mmol/L Potassium (3.5-5.1) mmol/L Chloride (98-107) mmol/L Carbon Dioxide (22-30) mmol/L Anion Gap mmol/L BUN (7-17) mg/dL Creatinine (0.52-1.04) mg/dL Est GFR (CKD-EPI)AfAm (>60 ml/min/1.73 sqM) Est GFR (CKD-EPI)NonAf (>60 ml/min/1.73 sqM) Glucose (74-99) mg/dL Calcium (8.4-10.2) mg/dL Magnesium (1.6-2.3) mg/dL Total Bilirubin (0.2-1.3) mg/dL AST (14-36) U/L ALT (4-34) U/L Alkaline Phosphatase (38-126) U/L Troponin I <0.012 (0.000-0.034) ng/mL Total Protein (6.3-8.2) g/dL Albumin (3.5-5.0) g/dL Lipase (23-300) U/L Disposition Clinical Impression: Palpitations Disposition: HOME SELF-CARE Condition: Good Instructions (If sedation given, give patient instructions): Heart Palpitations (ED) Additional Instructions: Please have your primary care doctor please check your kidney function test. Is patient prescribed a controlled substance at d/c from ED?: No Referrals: Gema Rueda DO [Primary Care Provider] - 1-2 days Time of Disposition: 21:55
[2024-05-12 21:27] LABS: ALT 14 U/L (4-34); AST 21 U/L (14-36); African American GFR (CKD) 44 (>60 ml/min/1.73 sqM); Albumin 4.1 g/dL (3.5-5.0); Alkaline Phosphatase 86 U/L (38-126); Anion Gap 4 mmol/L; Basophils % (A) 1 %; Blood Urea Nitrogen 19 mg/dL (7-17); Calcium 9.2 mg/dL (8.4-10.2); Carbon Dioxide 32 mmol/L (22-30); Chloride 103 mmol/L (98-107); Eosinophils # (A) 0.1 k/uL (0-0.7); Eosinophils % (A) 2 %; Glucose 86 mg/dL (74-99); HGB 13.5 gm/dL (11.4-16.0); Lipase 100 U/L (23-300); Lymphocytes # (A) 1.8 k/uL (1.0-4.8); Lymphocytes % (A) 33 %; MCH 31.6 pg (25.0-35.0); MCHC 33.8 g/dL (31.0-37.0); MCV 93.5 fL (80.0-100.0); Magnesium 2.1 mg/dL (1.6-2.3); Mean Platelet Volume 7.1; Monocytes # (A) 0.4 k/uL (0-1.0); Monocytes % (A) 7 %; Neutrophils % (A) 55 %; Non-African American GFR(CKD) 38 (>60 ml/min/1.73 sqM); Platelet Count 220 k/uL (150-450); Potassium 4.1 mmol/L (3.5-5.1); RBC 4.28 m/uL (3.80-5.40); RDW 11.9 % (11.5-15.5); Sodium 139 mmol/L (137-145); Total Bilirubin 0.5 mg/dL (0.2-1.3); Total Protein 6.4 g/dL (6.3-8.2); WBC 5.5 k/uL (3.8-10.6)
[2024-05-12 21:37] LABS: INR 0.9 (<1.2); Partial Thromboplastin Time 22.3 sec (22.0-30.0); Prothrombin Time 10.6 sec (10.0-12.5)
--- NOTE | 2024-05-12 21:47 | XR ---
EXAMINATION TYPE: XR chest 2V DATE OF EXAM: 05/12/2024 9:22 PM CLINICAL INDICATION:Female, 69 years old with history of Chest Pain; [facility] COMPARISON: Chest radiographs 01/20/2024 TECHNIQUE: XR chest 2V Frontal view of the chest. FINDINGS: Lungs/Pleura: There is no evidence of pleural effusion, focal consolidation, or pneumothorax. Pulmonary vascularity: Unremarkable. Heart/mediastinum: Cardiomediastinal silhouette is unremarkable. Musculoskeletal: No acute osseous pathology. Other findings: None IMPRESSION: No acute cardiopulmonary disease/process. [facility], , 05/12/2024 9:45 PM
[2024-05-12 22:05] VITALS: BP 162/66; PULSE 69; RESP 16
== END 2024-05-12 22:05 | disposition home or self-care (01) ==
LOC: EC 20:23
DX: R00.2 Palpitations (principal); Z87.891 Personal history of nicotine dependence; Z88.5 Allergy status to narcotic agent
CPT/HCPCS: 36415; 71046; 80053; 83690; 83735; 84484; 85025; 85610; 85730; 93005; 99285

== ENCOUNTER 2024-09-03 17:40 | Emergency (ER) | payer MEDICARE ==
[2024-09-03 18:03] VITALS: RESP 18
--- NOTE | 2024-09-03 18:17 | ED ---
General Adult HPI - General Source: patient, family, RN notes reviewed Mode of arrival: ambulatory Limitations: no limitations <Lali Tracey - Last Filed: 09/03/24 18:16> <Conrad Mueller - Last Filed: 09/03/24 21:38> - General Chief complaint: Dizziness Stated complaint: Came from Urgent Care/Dizziness Time Seen by Provider: 09/03/24 17:55 - History of Present Illness Initial comments: Quick [id number] female with history of vertigo presenting to the emergency department with referral from urgent care for complaints of dizziness. Patient states that she woke up this morning with dizziness that is worse with movement. Denies dizziness at rest. Patient states that this feels different from her normal episodes of vertigo. She denies chest pain, difficulty breathing, headaches, visual disturbances. (Lali Tracey) Dictation was produced using [employer] dictation software. please excuse any grammatical, word or spelling errors. Chief Complaint: 69-year-old female with history of vertigo presents emergency department with dizziness History of Present Illness: Patient is a 69-year-old female with history of hemochromatosis, fibromyalgia thyroid disease. For the last 1 to 2 days she has been having dizziness. She stands and exerts herself. Denies any sensation of the room spinning. Her symptoms not exacerbated with rapid head movements. She went to the urgent care was told to come to the emergency department. Denies any extremity deficits. No nausea vomiting. No pain complaints. The ROS documented in this emergency department record has been reviewed and confirmed by me. Those systems with pertinent positive or negative responses have been documented in the HPI. All other systems are other negative and/or noncontributory. (Conrad Mueller) - Related Data Home Medications Medication Instructions Recorded Confirmed ALPRAZolam [Xanax] 0.25 mg PO BID PRN 11/22/13 09/07/18 Sennosides [Senna] 8.6 mg PO DAILY 09/16/16 09/07/18 Gabapentin [Neurontin] 300 mg PO TID 10/25/16 09/07/18 Levothyroxine Sodium [Synthroid] 100 mcg PO DAILY 10/25/16 09/07/18 Tolterodine Tartrate [Detrol LA] 4 mg PO DAILY 10/25/16 09/07/18 Zolpidem [Ambien] 10 mg PO HS PRN 10/25/16 09/07/18 traMADol HCL [Ultram] 50 mg PO Q6HR PRN 09/19/17 09/07/18 Calcium/Magnesium/Zinc 1 tab PO DAILY@1200 09/07/18 09/07/18 [Uwseamu-Lcmpecjfr-Zpjx Tablet] DULoxetine HCL [Cymbalta] 60 mg PO DAILY 09/07/18 09/07/18 Nitrofurantoin Monohyd/M-Cryst 100 mg PO DAILY PRN 09/07/18 09/07/18 [Macrobid] Phenazopyridine HCl [Pyridium] 200 mg PO TID PRN 09/07/18 09/07/18 estradioL [Yuvafem] 10 mcg VG MOTH 09/07/18 09/07/18 Allergies Allergy/AdvReac Type Severity Reaction Status Date / Time morphine AdvReac Itching Verified 09/03/24 18:03 Review of Systems ROS Other: All systems not noted in ROS Statement are negative. <Lali Tracey - Last Filed: 09/03/24 18:16> ROS Other: All systems not noted in ROS Statement are negative. <Conrad Mueller - Last Filed: 09/03/24 21:38> ROS Statement: Those systems with pertinent positive or pertinent negative responses have been documented in the HPI. Past Medical History Past Medical History: Cancer, Fibromyalgia, Osteoarthritis (OA), Thyroid Disorder Additional Past Medical History / Comment(s): vertigo, hx. skin cancer, recu rrent UTIs, History of Any Multi-Drug Resistant Organisms: None Reported Past Surgical History: Appendectomy, Bladder Surgery, Hysterectomy, Joint Rep lacement, Tubal Ligation Additional Past Surgical History / Comment(s): tubal reversal, scope left knee and right knee, had mesh for bladder then removed, right knee replaced 2016, total left knee, Past Anesthesia/Blood Transfusion Reactions: No Reported Reaction Past Psychological History: No Psychological Hx Reported Smoking Status: Former smoker Past Alcohol Use History: Occasional Past Drug Use History: None Reported - Past Family History Father Family Medical History: Deep Vein Thrombosis (DVT) Additional Family Medical History / Comment(s): leg <Lali Tracey - Last Filed: 09/03/24 18:16> General Exam Limitations: no limitations <Lali Tracey - Last Filed: 09/03/24 18:16> <Conrad Mueller - Last Filed: 09/03/24 21:38> - General Exam Comments Initial Comments: Visual Physical Exam Vital signs reviewed General: Well-appearing, nontoxic, no acute distress. Head: Normocephalic, atraumatic Eyes: PERRLA, EOMI ENT: Airway patent Chest: Nonlabored breathing Skin: No visual rash, normal skin tone Neuro: Alert and oriented 3 Musculoskeletal: No gross abnormalities (Lali Tracey) PHYSICAL EXAM: General Impression: Alert and oriented x3, not in acute distress HEENT: Normocephalic atraumatic, extra-ocular movements intact, pupils equal and reactive to light bilaterally, mucous membranes moist. Cardiovascular: Heart regular rate and rhythm Chest: Able to complete full sentences, no retractions, no tachypnea Abdomen: abdomen soft, non-tender, non-distended, no organomegaly Musculoskeletal: Pulses present and equal in all extremities, no peripheral edema Motor: no focal deficits noted Neurological: CN II-XII grossly intact, no focal motor or sensory deficits noted Skin: Intact with no visualized rashes Psych: Normal affect and mood (Conrad Mueller) Course Vital Signs 09/03/24 09/03/24 18:00 21:15 Temperature 97.8 F Pulse Rate 71 Pulse Rate [ 66 Left Sitting Pulse Oximetery ] Pulse Rate [ 67 Left Standing Pulse Oximetery ] Pulse Rate [ 62 Left Supine Pulse Oximetery ] Respiratory 18 18 Rate Blood Pressure 130/56 Blood Pressure 166/82 [Right Arm Sitting] Blood Pressure 162/81 [Right Arm Standing] Blood Pressure 163/75 [Right Arm Supine] O2 Sat by Pulse 98 100 Oximetry EKG Findings - EKG Comments: EKG Findings:: My EKG interpretation: Ventricular rate 62, sinus rhythm, MA interval 142, QRS 83, QTc 399. No MA prolongation, no QTC prolongation, no ST or T-wave changes noted. Overall, this EKG is unremarkable <Conrad Mueller - Last Filed: 09/03/24 21:38> Medical Decision Making <Lali Tracey - Last Filed: 09/03/24 18:16> - Lab Data Result diagrams: 09/03/24 20:08 09/03/24 20:08 <Conrad Mueller D - Last Filed: 09/03/24 21:38> - Medical Decision Making I completed the quick note portion of this chart signed Lali Tracey PA-C (Lali Tracey) Was pt. sent in by a medical professional or institution (DOUGLAS Vasquez, EXPEDITER CLERK, urgent care, hospital, or jail...) When possible be specific @ -No Did you speak to anyone other than the patient for history (EMS, parent, family, police, friend...)? What history was obtained from this source @ -No Did you review nursing and triage notes (agree or disagree)? Why? @ -I reviewed and agree with nursing and triage notes Were old charts reviewed (outside hosp., previous admission, EMS record, old EKG, old radiological studies, urgent care reports/EKG's, jail records)? Report findings @ -No old charts were reviewed Differential Diagnosis (chest pain, altered mental status, abdominal pain women, abdominal pain men, vaginal bleeding, musculoskeletal, weakness, fever, dyspnea, syncope, headache, dizziness, GI bleed, back pain, seizure, CVA, palpatations, mental health)? @ -Differential Dizziness: Benign paroxysmal positional Vertigo, Meniere's disease, otitis media, acoustic neuroma, vertebrobasilar insufficiency, cerebellar stroke, encephalitis, hypovolemic, arrhythmia, coronary artery syndrome, anemia, this is not meant to be an all-inclusive list EKG interpreted by me (3pts min.). @ -See above X-rays interpreted by me (1pt min.). @ -None done CT interpreted by me (1pt min.). @ -CT brain is nonacute U/S interpreted by me (1pt. min.). @ -None done What testing was considered but not performed or refused? (CT, X-rays, U/S, labs)? Why? @ -None What meds were considered but not given or refused? Why? @ -None Was smoking cessation discussed for >3mins.? @ -No Were there social determinants of health that impacted care today? How? (Homelessness, low income, unemployed, alcoholism, drug addiction, transportation, low edu. Level, literacy, decrease access to med. care, fci, rehab)? @ -No Was there de-escalation of care discussed even if they declined (Discuss DNR or withdrawal of care, Hospice)? DNR status @ -No What co-morbidities impacted this encounter? (DM, HTN, Smoking, COPD, CAD, Cancer, CVA, ARF, Chemo, Hep., AIDS, mental health diagnosis, sleep apnea, morb id obesity)? @ -None Was patient admitted / discharged? Hospital course, mention meds given and rou te, prescriptions, significant lab abnormalities, going to OR and other pertinent info. @ -69-year-old female presents emergency department with dizziness that is exacerbated with standing and exerting herself. Denies any associate chest pain shortness of breath or epigastric pain. No concern for acute coronary syndrome. Patient has history of vertigo states that he does not feel like the room is spinning. Her symptoms not apparent at rest. Not exacerbated with head movements. Laboratory evaluation is unremarkable. CT brain is negative. Patient reevaluated bedside 9:30 PM found to be stable to condition. Patient discharged advised follow-up with primary care doctor. Patient feels stable after IV fluids Did you discuss the management of the patient with other professionals (yeimy españa i.e. , PA, EXPEDITER CLERK, lab, RT, psych nurse, social work specialist, medical territory manager, teacher, civilian jail officer, caser)? Give summary @ -No Was critical care preformed (if so, how long)? @ -No Undiagnosed new problem with uncertain prognosis? @ -No Drug Therapy requiring intensive monitoring for toxicity (Heparin, Nitro, Insulin, Cardizem)? @ -No Were any procedures done? @ -No Diagnosis/symptom? Acute, or Chronic, or Acute on Chronic? Uncomplicated (without systemic symptoms) or Complicated (systemic symptoms)? @ -Dizziness, no high risk features Side effects of treatment? @ -No Exacerbation, Progression, or Severe Exacerbation? @ -No Poses a threat to life or bodily function? How? (Chest pain, [place], [place], pneumonia, PE, COPD, DKA, ARF, appy, cholecystitis, CVA, Diverticulitis, Homicidal, S uicidal, threat to staff... and all critical care pts) @ -No (Conrad Mueller) - Lab Data Lab Results 09/03/24 09/03/24 09/03/24 Range/Units 20:08 20:08 20:08 WBC 4.55 (4.50-10.00) 10*3/uL RBC 4.28 (4.10-5.20) 10*6/uL Hgb 13.8 (12.0-15.0) g/dL Hct 38.3 (37.2-46.3) % MCV 89.5 (80.0-97.0) fL MCH 32.2 H (27.0-32.0) pg MCHC 36.0 (32.0-37.0) g/dL Plt Count 249 (140-440) 10*3/uL MPV 10.0 (9.5-12.2) fL Immature Gran % (Auto) 0.2 % Neutrophils % 52.3 % Lymphocytes % 33.2 % Monocytes % 11.2 % Eosinophils % 2.0 % Basophils % 1.1 % Immature Gran # 0.01 (0.00-0.04) 10*3/uL Neutrophils # 2.38 (1.80-7.70) 10*3/uL Lymphocytes # 1.51 (0.90-5.00) 10*3/uL Monocytes # 0.51 (0.20-1.00) 10*3/uL Eosinophils # 0.09 (0.04-0.35) 10*3/uL Basophils # 0.05 (0.00-0.10) 10*3/uL Sodium 140 (137-145) mmol/L Potassium 3.9 (3.5-5.1) mmol/L Chloride 101 (98-107) mmol/L Carbon Dioxide 29 (22-30) mmol/L Anion Gap 10 mmol/L BUN 23 H (7-17) mg/dL Creatinine 1.12 H (0.52-1.04) mg/dL Est GFR (CKD-EPI)AfAm 58 (>60 ml/min/1.73 sqM) Est GFR (CKD-EPI)NonAf 50 (>60 ml/min/1.73 sqM) Glucose 77 (74-99) mg/dL Calcium 10.1 (8.4-10.2) mg/dL Magnesium 2.0 (1.6-2.3) mg/dL Total Bilirubin 0.6 (0.2-1.3) mg/dL AST 19 (14-36) U/L ALT 15 (4-34) U/L Alkaline Phosphatase 85 (38-126) U/L Troponin I <0.012 (0.000-0.034) ng/mL Total Protein 6.3 (6.3-8.2) g/dL Albumin 4.2 (3.5-5.0) g/dL Disposition <Lali Tracey - Last Filed: 09/03/24 18:16> Is patient prescribed a controlled substance at d/c from ED?: No Time of Disposition: 21:38 <Conrad Mueller - Last Filed: 09/03/24 21:38> Clinical Impression: Dizziness Disposition: HOME SELF-CARE Condition: Fair Instructions (If sedation given, give patient instructions): Dizziness (ED) Referrals: Gema Rueda DO [Primary Care Provider] - 1-2 days
[2024-09-03 20:17] LABS: Basophils # (A) 0.05 10*3/uL (0.00-0.10); Basophils % (A) 1.1 %; Eosinophils # (A) 0.09 10*3/uL (0.04-0.35); HCT 38.3 % (37.2-46.3); HGB 13.8 g/dL (12.0-15.0); Lymphocytes # (A) 1.51 10*3/uL (0.90-5.00); Lymphocytes % (A) 33.2 %; MCH 32.2 pg (27.0-32.0); MCV 89.5 fL (80.0-97.0); Monocytes # (A) 0.51 10*3/uL (0.20-1.00); Monocytes % (A) 11.2 %; Neutrophils # (A) 2.38 10*3/uL (1.80-7.70); Neutrophils % (A) 52.3 %; Platelet Count 249 10*3/uL (140-440); RBC 4.28 10*6/uL (4.10-5.20); RDW 11.1 % (11.5-14.5); WBC 4.55 10*3/uL (4.50-10.00)
[2024-09-03 20:41] LABS: ALT 15 U/L (4-34); AST 19 U/L (14-36); Blood Urea Nitrogen 23 mg/dL (7-17); Potassium 3.9 mmol/L (3.5-5.1); Total Bilirubin 0.6 mg/dL (0.2-1.3); Total Protein 6.3 g/dL (6.3-8.2)
[2024-09-03 21:13] LABS: African American GFR (CKD) 58 (>60 ml/min/1.73 sqM); Albumin 4.2 g/dL (3.5-5.0); Alkaline Phosphatase 85 U/L (38-126); Anion Gap 10 mmol/L; Calcium 10.1 mg/dL (8.4-10.2); Carbon Dioxide 29 mmol/L (22-30); Chloride 101 mmol/L (98-107); Glucose 77 mg/dL (74-99); Non-African American GFR(CKD) 50 (>60 ml/min/1.73 sqM); Sodium 140 mmol/L (137-145)
--- NOTE | 2024-09-03 21:21 | CT ---
EXAMINATION TYPE: CT brain wo con DATE OF EXAM: 09/03/2024 9:02 PM COMPARISON: 01/18/2024.. CLINICAL INDICATION: Female, 69 years old with history of dizziness, dizziness TECHNIQUE: Brain: Axial CT images of the brain were obtained with coronal and sagittal reformats created and rev iewed. Contrast used: None. Oral contrast used: None. CT DLP: 1057.4 mGycm, Automated exposure control for dose reduction was used. FINDINGS: Brain: Extra-axial spaces: No abnormal extra-axial fluid collections. Ventricular system: Dilatation in proportion to cerebral atrophy. Cerebral parenchyma: Cerebral atrophy. No acute intraparenchymal hemorrhage or mass effect. The bojorquez -white junction is well differentiated. Scattered hypoattenuating areas are seen within the white mat ter. Cerebellum: Unremarkable. Mass effect: No evidence of midline shift. Intracranial vasculature: Atherosclerotic calcifications of the intracranial vessels. Soft tissues: Normal. Calvarium/osseous structures: No depressed skull fracture. Paranasal sinuses and mastoid air cells: Mild scattered paranasal sinus disease. Visualized orbits: Orbital contents are intact. IMPRESSION: 1. No acute intracranial process. 2. Nonspecific white matter changes, likely secondary to chronic small vessel ischemic disease. [facility], , 09/03/2024 9:19 PM
[2024-09-03] MEDS: SODIUM CHLORIDE 0.9% 1,000 ML IV STA (21:26)
[2024-09-03 22:10] VITALS: BP 158/70; PULSE 68; TEMP 98.1
== END 2024-09-03 22:16 | disposition home or self-care (01) ==
LOC: EC 17:40
DX: R42 Dizziness and giddiness (principal); Z87.891 Personal history of nicotine dependence; Z88.5 Allergy status to narcotic agent
CPT/HCPCS: 36415; 70450; 80053; 83605; 83735; 84484; 85025; 93005; 96360; 99284